=== PATIENT | female | born 1970 | race African-American/Black ===

== ENCOUNTER 2018-01-12 08:55 | Emergency (ER) | payer MEDICAID ==
[~2018-01-12] VITALS: Ht 162.6 cm; Wt 60.0 kg
[2018-01-12 09:04] VITALS: BP 148/84; PULSE 98; RESP 24; TEMP 98.2; O2SAT 99
[2018-01-12 09:45] LABS: HEMATOCRIT 40.3 % (35.0-46.0); HEMOGLOBIN 13.5 GM/DL (11.6-15.3); MEAN CELL VOLUME 84.2 FL (80.0-100.0); MEAN CORPUSCULAR HEMOGLOBIN 28.3 PG (27.0-34.0); MEAN CORPUSCULAR HGB CONC 33.6 % (32.0-36.0); MEAN PLATELET VOLUME 8.2 FL (7.0-11.0); PLATELET COUNT 382 TH/MM3 (150-450); RED BLOOD COUNT 4.78 MIL/MM3 (4.00-5.30); RED CELL DISTRIBUTION WIDTH 20.3 % (11.6-17.2); WHITE BLOOD COUNT 9.3 TH/MM3 (4.0-11.0)
--- NOTE | 2018-01-12 09:50 | RADRPT ---
EXAM DATE/TIME: 01/12/2018 09:27 [facility] COMPARISON: No previous studies available for comparison. INDICATIONS : Chest pain and shortness of breath. MEDICAL HISTORY : Carcinoma, breast. SURGICAL HISTORY : Mastectomy, right. ENCOUNTER: Initial ACUITY: 2 days PAIN SCORE: 8/10 LOCATION: Left upper chest FINDINGS: PA and lateral views of the chest demonstrate the lungs to be symmetrically aerated without evidence of mass, infiltrate or effusion. The cardiomediastinal contours are unremarkable. Osseous structure s are intact. CONCLUSION: No acute disease. Marcus Ellsworth MD on January 12, 2018 at 9:47 Board Certified Radiologist. This report was verified electronically.
[2018-01-12 09:59] LABS: BICARBONATE 25.4 MEQ/L (21.0-32.0); CALCIUM 9.6 MG/DL (8.5-10.1); CHLORIDE 105 MEQ/L (98-107); CREATININE 0.88 MG/DL (0.50-1.00); GLOMERULAR FILTRATION RATE 83 ML/MIN (>89); GLUCOSE,RANDOM 116 MG/DL (74-106); SODIUM (NA) 139 MEQ/L (136-145)
[2018-01-12 10:02] LABS: BLOOD UREA NITROGEN 12 MG/DL (7-18); TROPONIN I LESS THAN 0.02 NG/ML (0.02-0.05)
[2018-01-12 10:29] LABS: BANDS 1 % (0-6); BASOPHILS 1 % (0-2); LYMPHOCYTES 20 % (9-44); MONOCYTES 7 % (0-8); NEUTROPHIL # MANUAL DIFF 6.4 TH/MM3 (1.8-7.7); POLYS (SEG NEUTROPHILS) 68 % (16-70)
[2018-01-12 10:31] LABS: TARGET CELLS 1+ (NORMAL)
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
[2018-01-12] MEDS ORDERED: MORPHINE SULFATE 2 MG/ML INJ IV PUSH ONE (10:45)
[2018-01-12] MEDS ORDERED: IOHEXOL 350 MG/ML 10 ML VIAL (for RAD DIAG) IVCONTRAST ONE (11:16)
--- NOTE | 2018-01-12 11:34 | RADRPT ---
EXAM DATE/TIME: 01/12/2018 11:15 [facility] COMPARISON: CT PULMONARY ANGIOGRAM, September 15, 2013, 4:13. INDICATIONS : Shortness of breath, evaluate for embolism IV CONTRAST: 71 cc Omnipaque 350 (iohexol) IV RADIATION DOSE: 8.87 CTDIvol (mGy) MEDICAL HISTORY : Metastatic, breast. SURGICAL HISTORY : Mastectomy, right. Exploritory Abdominal surgery ENCOUNTER: Initial ACUITY: 1 day PAIN SCALE: 4/10 LOCATION: Bilateral chest TECHNIQUE: Volumetric scanning of the chest was performed using a pulmonary embolism protocol MIP images were re constructed. Using automated exposure control and adjustment of the mA and/or kV according to patien t size, radiation dose was kept as low as reasonably achievable to obtain optimal diagnostic quality images. DICOM format image data is available electronically for review and comparison. Follow-up recommendations for detected pulmonary nodules are based at a minimum on nodule size and pa tient risk factors according to Fleischner Society Guidelines. FINDINGS: PULMONARY ARTERIES: No filling defects are seen in the pulmonary arteries through the segmental level. LUNGS: There is no consolidation or pneumothorax . No concerning pulmonary nodule is visualized. Mild scar ring in the left medial lung base. PLEURAE: There is no pleural thickening or pleural effusion. MEDIASTINUM: There is good visualization of the great vessels of the middle mediastinum. No evidence of mediastin al or hilar adenopathy/mass. Right mastectomy. CONCLUSION: The study is negative for pulmonary embolism. Michael Seaman MD on January 12, 2018 at 11:31 Board Certified Radiologist. This report was verified electronically.
[2018-01-12 11:37] LABS: BACTERIA, URINE RARE /hpf; BILIRUBIN, URINE NEG (NEG); BLOOD, URINE TRACE (NEG); GLUCOSE,URINE NEG (NEG); KETONE, URINE NEG (NEG); MUCUS URINE FEW /lpf (OCC); NITRITE,URINE NEG (NEG); PH, URINE 5.5 (5.0-8.5); SQUAMOUS EPITHELIAL CELL URINE 3 /hpf (0-5); URINE COLOR YELLOW (YELLW/STRAW); URINE LEUKOCYTE ESTERASE LARGE (NEG)
[2018-01-12 12:26] VITALS: BP 129/80
--- NOTE | 2018-01-12 15:06 | EKG ---
Date Performed: 01/12/2018 Time Performed: 09:16:34 PTAGE: 47 years EKG: Sinus rhythm NONSPECIFIC T-WAVE ABNORMALITY BORDERLINE ECG PREVIOUS TRACING : 03/25/2015 11.53 DOCTOR: Cameron Mensah Interpretating Date/Time 01/12/2018 15:04:18
== END 2018-01-12 12:26 | disposition home or self-care (01) ==
LOC: NEPD 08:55
DX: N63.0 Unspecified lump in unspecified breast (principal); R07.89 Other chest pain; M54.9 Dorsalgia, unspecified; Z85.3 Personal history of malignant neoplasm of breast; R06.02 Shortness of breath
CPT/HCPCS: 71046; 71275; 80048; 80307; 81001; 82550; 82552; 84484; 84703; 85007; 85027; 87086; 93005; 96374; 99285; J2270; Q9967

== ENCOUNTER 2018-01-16 15:32 | Emergency (ER) | payer MEDICAID ==
[~2018-01-16] VITALS: Ht 167.6 cm; Wt 65.0 kg
[2018-01-16 15:41] VITALS: BP 132/71; PULSE 88; RESP 22; TEMP 97.9; O2SAT 97
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
[2018-01-16] MEDS ORDERED: KETOROLAC TROMETHAMINE 60 MG/2 ML (IM) VIAL IM ONE (16:15)
[2018-01-16] MEDS ORDERED: ORPHENADRINE INJ 60 MG/2 ML AMP IM ONE (16:15)
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
[2018-01-16] MEDS ORDERED: IBUP1TAB7 PO (18:49)
[2018-01-16] MEDS ORDERED: ROBA500T PO (18:49)
[2018-01-16 19:07] VITALS: PULSE 76; RESP 18; O2SAT 96
== END 2018-01-16 19:15 | disposition home or self-care (01) ==
LOC: NEPD 15:32
DX: M54.5 Low back pain (principal); R10.9 Unspecified abdominal pain; Z85.3 Personal history of malignant neoplasm of breast
CPT/HCPCS: 74176; 84703; 96372; 99283; J1885; J2360

== ENCOUNTER 2018-01-25 13:03 | Inpatient (IN) | payer MEDICAID ==
[~2018-01-25] VITALS: Ht 167.6 cm; Wt 79.5 kg
[~2018-01-25 13:03] MED LIST: IBUP1TAB7 PO; ROBA500T PO
[2018-01-25 13:19] VITALS: BP 113/76; PULSE 127; RESP 12; TEMP 97.4; O2SAT 99
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
[2018-01-25 15:33] VITALS: BP 137/83; PULSE 127; RESP 19; O2SAT 97
[2018-01-25] MEDS ORDERED: SODIUM CHLOR 0.9% 1000 ML INJ 1,000 ML IV ONE ×3 (15:45→17:30)
--- NOTE | 2018-01-25 16:16 | RADRPT ---
EXAM DATE/TIME: 01/25/2018 15:48 [facility] COMPARISON: CHEST SINGLE AP, October 30, 2013, 6:10. INDICATIONS : Leg pain, chest pain. MEDICAL HISTORY : Carcinoma, breast. SURGICAL HISTORY : Mastectomy right breast ENCOUNTER: Initial ACUITY: 1 day PAIN SCORE: 8/10 LOCATION: Bilateral chest FINDINGS: A single view of the chest demonstrates the lungs to be symmetrically aerated without evidence of mas s, infiltrate or effusion. Mild scarring in the right costophrenic angle. The cardiomediastinal cont ours are unremarkable. Osseous structures are intact. CONCLUSION: No acute disease. No significant change has occurred. Vito Flowers MD on January 25, 2018 at 16:14 Board Certified Radiologist. This report was verified electronically.
[2018-01-25 16:28] LABS: AUTOMATED NEUTROPHIL # 24.2 TH/MM3 (1.8-7.7); BASOPHIL % 0.1 % (0.0-2.0); EOSINOPHIL % 0.1 % (0.0-4.0); HEMATOCRIT 40.1 % (35.0-46.0); HEMOGLOBIN 13.3 GM/DL (11.6-15.3); LYMPH % 6.6 % (9.0-44.0); LYMPHOCYTE # 1.8 TH/MM3 (1.0-4.8); MEAN CELL VOLUME 82.1 FL (80.0-100.0); MEAN CORPUSCULAR HEMOGLOBIN 27.3 PG (27.0-34.0); MEAN CORPUSCULAR HGB CONC 33.2 % (32.0-36.0); MEAN PLATELET VOLUME 7.8 FL (7.0-11.0); MONO % 6.2 % (0.0-8.0); MONOCYTE # 1.7 TH/MM3 (0-0.9); PLATELET COUNT 891 TH/MM3 (150-450); RED BLOOD COUNT 4.88 MIL/MM3 (4.00-5.30); RED CELL DISTRIBUTION WIDTH 20.3 % (11.6-17.2); WHITE BLOOD COUNT 27.8 TH/MM3 (4.0-11.0)
[2018-01-25 16:34] LABS: BACTERIA, URINE RARE /hpf; BILIRUBIN, URINE NEG (NEG); BLOOD, URINE SMALL (NEG); GLUCOSE,URINE NEG (NEG); KETONE, URINE NEG (NEG); LACTIC ACID SEPSIS PROTOCOL 3.3 mmol/L (0.4-2.0); NITRITE,URINE NEG (NEG); SQUAMOUS EPITHELIAL CELL URINE 1 /hpf (0-5); URINE COLOR YELLOW (YELLW/STRAW); URINE LEUKOCYTE ESTERASE TRACE (NEG)
[2018-01-25 16:39] VITALS: O2SAT 97
[2018-01-25 16:52] LABS: ALKALINE PHOSPHATASE 126 U/L (45-117); TOTAL BILIRUBIN ADULT 0.7 MG/DL (0.2-1.0); TOTAL PROTEIN 9.3 GM/DL (6.4-8.2)
[2018-01-25] MEDS ORDERED: PIPERACIL-TAZO 4.5 GM PREMIX 100 ML IV ONE (17:00)
[2018-01-25] MEDS ORDERED: VANCOMYCIN INJ 1,000 MG in SODIUM CHLOR 0.9% 250 ML INJ 250 ML IV ONE (17:00)
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
[2018-01-25 19:08] LABS: ALBUMIN 1.7 GM/DL (3.4-5.0); ALT (GPT) 31 U/L (10-53); AST (GOT) 69 U/L (15-37); BICARBONATE 29.5 MEQ/L (21.0-32.0); BLOOD UREA NITROGEN 7 MG/DL (7-18); CALCIUM 8.3 MG/DL (8.5-10.1); CHLORIDE 102 MEQ/L (98-107); CREATININE 0.82 MG/DL (0.50-1.00); GLOMERULAR FILTRATION RATE 90 ML/MIN (>89); GLUCOSE,RANDOM 119 MG/DL (74-106); SODIUM (NA) 142 MEQ/L (136-145)
[2018-01-25] MEDS ORDERED: MORPHINE SULFATE 2 MG/ML INJ IV PUSH ONE (19:45)
[2018-01-25 20:04] VITALS: BP 123/79; PULSE 104; RESP 16; O2SAT 100
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
[2018-01-25] MEDS: POTASSIUM CHLOR 20 MEQ PREMIX 100 ML IV SCH ×2 (20:45→23:20)
[2018-01-25] MEDS ORDERED: ACETAMINOPHEN 325 MG TAB PO PRN (22:15)
[2018-01-25] MEDS ORDERED: SODIUM CHLORIDE 0.9% FLUSH 10 ML FLUSH IV FLUSH PRN (22:15)
[2018-01-25] MEDS ORDERED: Vancomycin Consult Pharmacy 1 EA OTHER SCH (22:15)
[2018-01-25] MEDS ORDERED: ONDANSETRON HCL 4 MG/2 ML VIAL IVP PRN (22:15)
[2018-01-25] MEDS ORDERED: NALOXONE HCL 0.4 MG/ML AMP IV PUSH PRN (22:15)
[2018-01-25] MEDS ORDERED: VANCOMYCIN 500 MG/NS 100 ML IV SCH ×2 (23:00)
[2018-01-26] VITALS (7 sets, daily range): BP systolic 115–139; BP diastolic 59–91; PULSE 89–107; RESP 14–18; TEMP 97.4–100; O2SAT 95–99
[2018-01-26] MEDS: PIPERACIL-TAZO 3.375 GM PREMIX 50 ML IV SCH ×5 (00:10→23:49)
[2018-01-26] MEDS: SODIUM CHLOR 0.9% 1000 ML INJ 1,000 ML IV SCH ×3 (00:10→13:14)
[2018-01-26 00:16] LABS: LACTIC ACID SEPSIS PROTOCOL 2.9 mmol/L (0.4-2.0)
[2018-01-26] MEDS ORDERED: MORPHINE SULFATE 4 MG/ML INJ IV PUSH ONE (01:00)
[2018-01-26] MEDS ORDERED: POTASSIUM CHLORIDE 20 MEQ CONTROLLED RELEASE TAB PO ONE (01:00)
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
[2018-01-26] MEDS ORDERED: POTASSIUM CHLOR 10 MEQ PREMIX 100 ML IV SCH (02:00)
[2018-01-26 04:53] LABS: AUTOMATED NEUTROPHIL # 22.2 TH/MM3 (1.8-7.7); BASOPHIL # 0.1 TH/MM3 (0-0.2); BASOPHIL % 0.3 % (0.0-2.0); EOSINOPHIL % 0.1 % (0.0-4.0); HEMATOCRIT 32.8 % (35.0-46.0); HEMOGLOBIN 11.3 GM/DL (11.6-15.3); LYMPH % 6.7 % (9.0-44.0); LYMPHOCYTE # 1.7 TH/MM3 (1.0-4.8); MEAN CELL VOLUME 80.8 FL (80.0-100.0); MEAN CORPUSCULAR HEMOGLOBIN 27.8 PG (27.0-34.0); MEAN CORPUSCULAR HGB CONC 34.4 % (32.0-36.0); MEAN PLATELET VOLUME 7.5 FL (7.0-11.0); MONO % 6.2 % (0.0-8.0); MONOCYTE # 1.6 TH/MM3 (0-0.9); NEUT % 86.7 % (16.0-70.0); PLATELET COUNT 781 TH/MM3 (150-450); RED BLOOD COUNT 4.06 MIL/MM3 (4.00-5.30); RED CELL DISTRIBUTION WIDTH 20.2 % (11.6-17.2); WHITE BLOOD COUNT 25.6 TH/MM3 (4.0-11.0)
[2018-01-26 05:27] LABS: BICARBONATE 26.5 MEQ/L (21.0-32.0); CREATININE 0.7 MG/DL (0.50-1.00)
--- NOTE | 2018-01-26 09:10 | RADRPT ---
EXAM DATE/TIME: 01/25/2018 16:59 [facility] COMPARISON: No previous studies available for comparison. INDICATIONS : Fell last week pain. MEDICAL HISTORY : Carcinoma, breast. SURGICAL HISTORY : None. ENCOUNTER: Initial ACUITY: 1 week PAIN SCORE: 6/10 LOCATION: Right femur FINDINGS: One view examination of the right femur demonstrates no evidence of fracture or dislocation. Bony mi neralization is normal. The soft tissue structures are intact. CONCLUSION: Negative for fracture or dislocation. Follow up in 7-10 days is suggested if symptoms persist. Jose Guadalupe Bruce MD FACR on January 26, 2018 at 9:08 Board Certified Radiologist. This report was verified electronically.
[2018-01-26] MEDS: MORPHINE SULFATE 2 MG/ML INJ IV PUSH PRN ×5 (09:53→23:47)
[2018-01-26] MEDS: SODIUM CHLORIDE 0.9% FLUSH 10 ML FLUSH IV FLUSH SCH ×2 (09:53→20:35)
[2018-01-26] MEDS: VANCOMYCIN 1,000 MG/NS 250 ML IV SCH ×2 (17:17)
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
[2018-01-27] VITALS: BP 128/72; PULSE 95; RESP 16; TEMP 97.3; O2SAT 95
[2018-01-27] MEDS: MORPHINE SULFATE 2 MG/ML INJ IV PUSH PRN ×7 (02:50→21:09)
[2018-01-27 04:00] VITALS: BP 122/72; PULSE 101; PULSE 98; RESP 18; TEMP 97.9; O2SAT 97
[2018-01-27] MEDS: PIPERACIL-TAZO 3.375 GM PREMIX 50 ML IV SCH ×3 (05:33→17:47)
[2018-01-27] MEDS: VANCOMYCIN 1,000 MG/NS 250 ML IV SCH ×4 (05:34→15:55)
[2018-01-27] MEDS: SODIUM CHLOR 0.9% 1000 ML INJ 1,000 ML IV SCH ×2 (05:34→14:44)
[2018-01-27 07:27] LABS: CREATININE 0.73 MG/DL (0.50-1.00)
[2018-01-27 08:17] VITALS: BP 119/68; PULSE 101; RESP 16; TEMP 99; O2SAT 97
[2018-01-27] MEDS: SODIUM CHLORIDE 0.9% FLUSH 10 ML FLUSH IV FLUSH SCH ×2 (09:00→21:17)
[2018-01-27 12:21] VITALS: PULSE 101; RESP 18; TEMP 97.9; O2SAT 99
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
--- NOTE | 2018-01-27 16:16 | HHI.PR ---
Subjective Remarks Patient c/o of severe pain to lumbar spine radiates down to her thigh. Patient also states that her thigh swollen and the right lower extremity is weak. The patient complains of fevers and chills. Patient states she has some urinary incontinence, however it is mainly when she coughs. Objective Vitals Vital Signs Date Time Temp Pulse Resp B/P (MAP) Pulse Ox O2 Delivery O2 Flow Rate FiO2 01/27/18 12:21 97.9 101 18 99 01/27/18 08:17 99.0 101 16 119/68 (85) 97 01/27/18 04:00 97.9 98 18 122/72 (89) 97 01/27/18 04:00 101 01/27/18 00:00 97.3 95 16 128/72 (90) 95 01/26/18 20:00 97.5 103 16 131/71 (91) 95 01/26/18 20:00 97 I/O 01/26/18 01/26/18 01/26/18 01/27/18 01/27/18 01/27/18 06:59 14:59 22:59 06:59 14:59 22:59 Intake Total 250 ml 960 ml Balance 250 ml 960 ml Intake Oral 960 ml IV Total 250 ml # Voids 1 7 # Bowel Movements 1 Result Diagram: 01/26/18 0434 01/27/18 0622 Imaging Last Impressions Thoracic Spine MRI 01/27/18 0000 Signed Impressions: Service Date/Time: January 10:54 - CONCLUSION: 1. Limited exam due to motion artifact just about every pulse sequence. 2. No obvious cord compromise or cord edema. 3. Probable hemangiomas in the T11 and T12 vertebral bodies. Simone Jiang MD Lumbar Spine MRI 01/27/18 0000 Signed Impressions: Service Date/Time: January 10:54 - CONCLUSION: 1. Examination is somewhat limited due to motion artifact on multiple pulse sequences. 2. However, there are multiple areas of abnormal signal intensity in the lower thoracic and multiple lumbar vertebrae. Findings are concerning for metastatic disease. May consider bone scan for further evaluation of the multiple vertebral body lesions. 3. Degenerative disc disease isolated to the lumbosacral junction with left foraminal narrowing which may compromise the left L5 nerve root. Spinal canal and neural foramina are adequate at all remaining lumbar levels. 4. Possible cystic lesions in the upper pelvis bilaterally. These are only partially evaluated on the last few images of the axial sequence. CT scan of the abdomen and pelvis could be performed with IV and oral contrast for further characterization. Smione Jiang MD Chest X-Ray 01/25/18 1539 Signed Impressions: Service Date/Time: Thursday, January 25, 2018 15:48 - CONCLUSION: No acute disease. No significant change has occurred. Vito Flowers MD Hip and Pelvis X-Ray 01/25/18 0000 Signed Impressions: Service Date/Time: Thursday, January 25, 2018 16:58 - CONCLUSION: Normal examination for a patient of this age. Vito Flowers MD Femur X-Ray 01/25/18 0000 Signed Impressions: Service Date/Time: Thursday, January 25, 2018 16:59 - CONCLUSION: Negative for fracture or dislocation. Follow up in 7-10 days is suggested if symptoms persist. Jose Guadalupe Bruce MD FACR Objective Remarks Patient is awake alert oriented 3, in moderate distress due to pain. Lungs are clear to auscultation bilaterally. S1-S2 are present, no murmur rubs or gallops appreciated. Abdomen is soft, nontender, nondistended. There is swelling and tenderness of the right thigh with decreased strength. Muscle strength in the right lower extremity is 2/5. All other extremities are 5/5. Medications and IVs Current Medications Medications (Trade) Dose Ordered Sig/Dave Route Start Time Stop Time Status Last Admin Sodium Chloride 1,000 ml @ 100 mls/hr Q10H IV 01/25/18 22:07 01/27/18 14:44 (NS Flush) 2 ml UNSCH PRN IV FLUSH 01/25/18 22:15 (NS Flush) 2 ml BID IV FLUSH 01/26/18 09:00 01/26/18 09:53 (Tylenol) 650 mg Q4H PRN PO 01/25/18 22:15 (Zofran Inj) 4 mg Q6H PRN IVP 01/25/18 22:15 (Narcan Inj) 0.4 mg UNSCH PRN IV PUSH 01/25/18 22:15 Pharmacy Profile Note 0 ml @ 0 mls/hr UNSCH OTHER 01/25/18 22:15 Piperacillin Sod/ Tazobactam Sod 50 ml @ 100 mls/hr Q6H IV 01/26/18 00:00 01/27/18 11:48 (Morphine Inj) 2 mg Q3H PRN IV PUSH 01/26/18 01:00 01/27/18 15:53 Vancomycin HCl 1000 mg/Sodium Chloride 250 ml @ 250 mls/hr Q12H IV 01/26/18 17:00 01/27/18 15:55 Miscellaneous Information SPECIFIC LAB TO BE DRAWN:VANCOMY... ONCE ONCE .XX 01/27/18 16:45 01/27/18 16:46 01/27/18 16:08 A/P Problem List: (1) Sepsis ICD Code: A41.9 - Sepsis, unspecified organism Status: Acute Plan: Present on admission. Patient with leukocytosis, tachycardia and elevated lactic acid. Concern for discitis. Chest x-ray negative, UA negative. MRI of the lumbar spine as above concerning for metastatic disease. We will order bone scan Continue IV vancomycin IV Zosyn. ID consult Blood cultures negative to date. (2) Acute right-sided low back pain ICD Code: M54.5 - Low back pain Status: Acute Plan: Suspect secondary to radiculopathy. Lumbar spine MRI shows degenerative disc disease is related to the lumbosacral junction with left foraminal narrowing which may compromise the left L5 nerve root. Also multiple areas of abnormal signal intensity in the lower thoracic and multiple lumbar vertebrae. Concerning for metastatic disease. Order bone scan. Consult neurosurgery for further recommendations. MRI also shows possible cystic lesions in the upper pelvis bilaterally-check CT scan of the abdomen and pelvis with IV contrast. Patient still with severe pain. Will change pain medication routine. We will start the patient on morphine sulfate 2 mg IV every 3 hours as needed for pain 1 through 4, 4 mg IV every 3 hours as needed for pain 5-10 and Dilaudid IV for breakthrough pain. (3) Hypokalemia ICD Code: E87.6 - Hypokalemia Plan: Likely due to poor oral intake. Replace and continue to monitor BMP. (4) Polysubstance abuse ICD Code: F19.10 - Other psychoactive substance abuse, uncomplicated Status: Acute Plan: Urine drug screen positive for benzodiazepines, cocaine and cannabinoids. Patient denies IV drug abuse. Cessation counseling provided. (5) Right thigh pain ICD Code: M79.651 - Pain in right thigh Status: Acute Plan: Concerning for DVT. We will check venous Doppler and start the patient on IV heparin drip in the meantime. The patient's pretest probability for DVT is elevated. If venous Doppler negative for DVT then will DC heparin. (6) H/O malignant neoplasm of breast ICD Code: Z85.3 - Personal history of malignant neoplasm of breast Plan: As per medical records, Dr. Barros performed a breast exam which demonstrated a palpable solid mass. Pending results on bone scan and CT chest abdomen and pelvis, consider oncology consultation. Assessment and Plan DVT reflexes: SCDs, will start on heparin drip. Discharge Planning Continue to monitor the medical floor. Pending CT abdomen and pelvis, CT chest , bone scan, neurosurgery consultation, ID consultation. Problem Qualifiers (1) Sepsis: Qualified Codes: A41.9 - Sepsis, unspecified organism Ramesh Phillips MD Jan 27, 2018 16:16
[2018-01-27] MEDS ORDERED: PHARMACY ORDERED LAB ONE (16:45)
[2018-01-27 17:06] VITALS: BP 120/89; PULSE 109; RESP 18; TEMP 98.2; O2SAT 98
[2018-01-27 18:58] LABS: HEMATOCRIT 30.8 % (35.0-46.0); HEMOGLOBIN 10.2 GM/DL (11.6-15.3); MEAN CELL VOLUME 82.3 FL (80.0-100.0); MEAN CORPUSCULAR HEMOGLOBIN 27.2 PG (27.0-34.0); MEAN CORPUSCULAR HGB CONC 33.1 % (32.0-36.0); PLATELET COUNT 774 TH/MM3 (150-450); RED BLOOD COUNT 3.75 MIL/MM3 (4.00-5.30); RED CELL DISTRIBUTION WIDTH 20.5 % (11.6-17.2); WHITE BLOOD COUNT 24.7 TH/MM3 (4.0-11.0)
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
[2018-01-27 18:59] LABS: INTERNATIONAL NORMALIZED RATIO 1.2 RATIO
[2018-01-27 19:08] LABS: ALBUMIN 1.6 GM/DL (3.4-5.0); ALKALINE PHOSPHATASE 142 U/L (45-117); ALT (GPT) 73 U/L (10-53); AST (GOT) 157 U/L (15-37); BICARBONATE 28.8 MEQ/L (21.0-32.0); BLOOD UREA NITROGEN 5 MG/DL (7-18); CALCIUM 8.5 MG/DL (8.5-10.1); CHLORIDE 102 MEQ/L (98-107); GLOMERULAR FILTRATION RATE 108 ML/MIN (>89); GLUCOSE,RANDOM 85 MG/DL (74-106); MAGNESIUM 1.5 MG/DL (1.5-2.5); PHOSPHORUS 3.3 MG/DL (2.5-4.9); SODIUM (NA) 139 MEQ/L (136-145); TOTAL BILIRUBIN ADULT 0.3 MG/DL (0.2-1.0); TOTAL PROTEIN 6.5 GM/DL (6.4-8.2)
[2018-01-27 20:36] VITALS: BP 123/75; PULSE 103; RESP 17; TEMP 98.6; O2SAT 100
[2018-01-28] VITALS (7 sets, daily range): BP systolic 103–139; BP diastolic 69–87; PULSE 81–106; RESP 17–22; TEMP 95.2–98.6; O2SAT 99–100
[2018-01-28] MEDS: SODIUM CHLOR 0.9% 1000 ML INJ 1,000 ML IV SCH ×3 (00:07→20:33)
[2018-01-28] MEDS: MORPHINE SULFATE 2 MG/ML INJ IV PUSH PRN ×4 (00:08→11:00)
[2018-01-28] MEDS: PIPERACIL-TAZO 3.375 GM PREMIX 50 ML IV SCH ×4 (00:11→18:38)
[2018-01-28] MEDS: VANCOMYCIN INJ 1,200 MG in SODIUM CHLOR 0.9% 250 ML INJ 250 ML IV SCH ×2 (04:54→17:17)
[2018-01-28 07:54] LABS: AUTOMATED NEUTROPHIL # 19.9 TH/MM3 (1.8-7.7); BASOPHIL # 0.1 TH/MM3 (0-0.2); BASOPHIL % 0.4 % (0.0-2.0); EOSINOPHIL # 0.1 TH/MM3 (0-0.4); EOSINOPHIL % 0.4 % (0.0-4.0); HEMATOCRIT 32.1 % (35.0-46.0); HEMOGLOBIN 10.9 GM/DL (11.6-15.3); LYMPH % 5.5 % (9.0-44.0); LYMPHOCYTE # 1.2 TH/MM3 (1.0-4.8); MEAN CELL VOLUME 82.3 FL (80.0-100.0); MEAN CORPUSCULAR HEMOGLOBIN 28.1 PG (27.0-34.0); MEAN CORPUSCULAR HGB CONC 34.1 % (32.0-36.0); MEAN PLATELET VOLUME 7.5 FL (7.0-11.0); MONO % 4.4 % (0.0-8.0); NEUT % 89.3 % (16.0-70.0); PLATELET COUNT 848 TH/MM3 (150-450); RED CELL DISTRIBUTION WIDTH 19.7 % (11.6-17.2); WHITE BLOOD COUNT 22.3 TH/MM3 (4.0-11.0)
[2018-01-28 08:05] LABS: ALBUMIN 1.5 GM/DL (3.4-5.0); ALKALINE PHOSPHATASE 106 U/L (45-117); ALT (GPT) 57 U/L (10-53); AST (GOT) 87 U/L (15-37); BICARBONATE 31.8 MEQ/L (21.0-32.0); BLOOD UREA NITROGEN 3 MG/DL (7-18); CHLORIDE 101 MEQ/L (98-107); CREATININE 0.61 MG/DL (0.50-1.00); GLOMERULAR FILTRATION RATE 127 ML/MIN (>89); GLUCOSE,RANDOM 83 MG/DL (74-106); MAGNESIUM 1.7 MG/DL (1.5-2.5); PHOSPHORUS 2.9 MG/DL (2.5-4.9); SODIUM (NA) 140 MEQ/L (136-145); TOTAL BILIRUBIN ADULT 0.3 MG/DL (0.2-1.0); TOTAL PROTEIN 6.4 GM/DL (6.4-8.2)
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
[2018-01-28] MEDS ORDERED: DIATRIZOATE MEGLUM/DIATRIZOATE SOD 9 ML CUP PO ONE (08:45)
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
[2018-01-28] MEDS ORDERED: MAGNESIUM HYDROXIDE SUSP 30 ML CUP PO PRN (11:15)
[2018-01-28] MEDS ORDERED: SODIUM CHLORIDE 0.9% FLUSH 10 ML FLUSH IV FLUSH PRN (11:15)
[2018-01-28] MEDS ORDERED: oxyCODONE/ACETAMINOPHEN 5 MG/325 MG TAB PO PRN (11:15)
[2018-01-28] MEDS ORDERED: ONDANSETRON HCL 4 MG/2 ML VIAL IVP PRN (11:15)
[2018-01-28] MEDS: DOCUSATE SODIUM 50 MG/SENNA 8.6 MG TAB PO SCH ×2 (11:15→20:33)
[2018-01-28] MEDS ORDERED: LORazepam 2 MG/ML VIAL IV PUSH ONE (11:15)
[2018-01-28] MEDS ORDERED: LACTULOSE SYRUP 20 GM/30 ML CUP PO PRN (11:15)
[2018-01-28] MEDS ORDERED: MORPHINE SULFATE 4 MG/ML INJ IV PUSH PRN (11:15)
[2018-01-28] MEDS ORDERED: METOCLOPRAMIDE HCL 10 MG/2 ML VIAL IV PUSH PRN (11:15)
[2018-01-28] MEDS ORDERED: POTASSIUM CHLORIDE 20 MEQ CONTROLLED RELEASE TAB PO ONE (11:15)
[2018-01-28] MEDS ORDERED: NALOXONE HCL 0.4 MG/ML AMP IV PUSH PRN (11:15)
[2018-01-28] MEDS: oxyCODONE/ACETAMINOPHEN 10 MG/325 MG TAB PO PRN (13:44)
--- NOTE | 2018-01-28 14:54 | RADRPT ---
EXAM DATE/TIME: 01/28/2018 12:30 [facility] COMPARISON: CT PULMONARY ANGIOGRAM, January 12, 2018, 11:15. MRI THORACIC SPINE W/O CONTRAST, January 27, 2018, 1 0:54. PRIOR BONE SCANS: No correlative bone scan available for comparison. INDICATIONS : Right breast cancer. DOSE: 31.2 mCi Tc99m MDP IV MEDICAL HISTORY : Carcinoma, breast. SURGICAL HISTORY : Tubal ligation. Mastectomy, right. ENCOUNTER: Initial ACUITY: 1 month PAIN SCALE: 2/10 LOCATION: Right Breast. TECHNIQUE: Three hours post intravenous administration of radiotracer, whole body bone scan imaging was performe d. FINDINGS: We were only able to acquire limited AP and PA images. The patient declined further imaging. There is motion artifact on the images obtained. I do not see definite evidence of metastatic disease to the spine or ribs. CONCLUSION: 1. Very Limited exam as above. No definite metastatic disease identified in the visualized structures . John Bruce MD on January 28, 2018 at 14:47 Board Certified Radiologist. This report was verified electronically.
[2018-01-28] MEDS ORDERED: PHARMACY ORDERED LAB ONE (15:45)
[2018-01-28] MEDS: MAGNESIUM OXIDE 400 MG TAB PO SCH ×2 (16:51→20:31)
[2018-01-28] MEDS: MORPHINE SULFATE 4 MG/ML INJ IV PUSH PRN (17:16)
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
[2018-01-28] MEDS: SODIUM CHLORIDE 0.9% FLUSH 10 ML FLUSH IV FLUSH SCH ×2 (20:30→20:33)
[2018-01-28] MEDS: SENNOSIDES 8.6 MG TAB PO SCH ×2 (20:31→20:33)
[2018-01-28] MEDS: LORazepam 2 MG TAB PO PRN (20:31)
[2018-01-28] MEDS: oxyCODONE HCL 20 MG CONTROLLED RELEASE TAB PO SCH (20:32)
[2018-01-28] MEDS ORDERED: oxyCODONE HCL 20 MG CONTROLLED RELEASE TAB PO SCH (21:00)
[2018-01-28] MEDS ORDERED: SODIUM CHLORIDE 0.9% FLUSH 10 ML FLUSH IV FLUSH SCH (21:00)
[2018-01-28] MEDS ORDERED: IOHEXOL 350 MG/ML 10 ML VIAL (for RAD DIAG) IVCONTRAST ONE (21:39)
--- NOTE | 2018-01-28 22:17 | RADRPT ---
EXAM DATE/TIME: 01/28/2018 21:35 [facility] COMPARISON: CT ABDOMEN & PELVIS W/O CONTRAST, January 16, 2018, 17:12. HIP RIGHT (AP&LAT 2/3VWS) W AP PELVIS, M 2017, 16:58. CT ABDOMEN & PELVIS W CONTRAST, May 25, 2012, 9:40. INDICATIONS : Breast cancer. Evaluate neoplasms. IV CONTRAST: 97 cc Omnipaque 350 (iohexol) IV ; Cumulative dose for multiple exams. ORAL CONTRAST: Prescribed oral contrast ingested. RADIATION DOSE: 5.57 CTDIvol (mGy) ; Combined studies - Thorax/Abdomen/Pelvis MEDICAL HISTORY : Carcinoma, breast. Metastatic disease. SURGICAL HISTORY : Tubal ligation. Mastectomy. ENCOUNTER: Initial ACUITY: 1 day PAIN SCALE: 0/10 LOCATION: abdomen TECHNIQUE: Volumetric scanning of the abdomen and pelvis was performed. Using automated exposure control and ad justment of the mA and/or kV according to patient size, radiation dose was kept as low as reasonably achievable to obtain optimal diagnostic quality images. DICOM format image data is available electro nically for review and comparison. FINDINGS: LOWER LUNGS: Small left pleural effusion. The visualized lower lungs are clear. LIVER: There is a solitary round low density lesion in the lateral segment of the left lobe of the liver adj acent to falciform ligament measuring 2.0 cm. This has a partial target type of appearance with no c alcification. No calcified gallstones. No biliary ductal dilatation. SPLEEN: Normal size without lesion. PANCREAS: Within normal limits. KIDNEYS: Normal in size and shape. There is no mass, stone or hydronephrosis. ADRENAL GLANDS: Within normal limits. VASCULAR: There is no aortic aneurysm. BOWEL/MESENTERY: The stomach, small bowel, and colon demonstrate no acute abnormality. There is no free intraperitone al air or fluid. ABDOMINAL WALL: Within normal limits. RETROPERITONEUM: There is a large mass which extends from the proximal right thigh into the iliac fossa with a mixed c ystic and solid type of appearance. The iliac fossa component measures 10.2 x 6.1 cm. The superior/ inferior extent of both the iliac fossa and right component measures in excess of 15 cm and there is enlargement and infiltration involving the medial muscle group and asymmetric enlargement of the glut eal muscles suggesting involvement with anterior and posterior compartment muscles. This is a new fi nding when compared to prior CT scan on 01/16/18. There are no focal collections of gas in the adjace nt osseous structures are radiographically intact. BLADDER: No wall thickening or mass. REPRODUCTIVE: Within normal limits. INGUINAL: There is no lymphadenopathy or hernia. MUSCULOSKELETAL: Within normal limits for patient age. CONCLUSION: 1. 2 cm round low density lesion in the medial segment left lobe liver is suspicious for a metastatic lesion. 2. Small left pleural effusion. 3. Large mixed fluid and solid soft tissue abnormality involving the proximal thigh and extending int o the iliac fossa measuring in excess of 15 cm in size, having developed since prior CT scan less jason n one month ago. The rapidity of onset suggests an etiology other than neoplasm, such as hematoma, a bscess, or trauma. Michael Seaman MD on January 28, 2018 at 22:06 Board Certified Radiologist. This report was verified electronically.
--- NOTE | 2018-01-28 22:36 | RADRPT ---
EXAM DATE/TIME: 01/28/2018 21:35 [facility] COMPARISON: CT PULMONARY ANGIOGRAM, September 15, 2013, 4:13. CT THORAX W CONTRAST, May 23, 2012, 14:01. INDICATIONS : Breast cancer. Evaluate neoplasms. IV CONTRAST: 97 cc Omnipaque 350 (iohexol) IV ; Cumulative dose for multiple exams. RADIATION DOSE: 5.57 CTDIvol (mGy) ; Combined studies - Thorax/Abdomen/Pelvis MEDICAL HISTORY : Carcinoma, breast. Metastatic disease. SURGICAL HISTORY : Tubal ligation. Mastectomy. ENCOUNTER: Initial ACUITY: 1 day PAIN SCALE: 0/10 LOCATION: chest TECHNIQUE: Volumetric scanning of the chest was performed. Using automated exposure control and adjustment of t he mA and/or kV according to patient size, radiation dose was kept as low as reasonably achievable to obtain optimal diagnostic quality images. DICOM format image data is available electronically for review and comparison. Follow-up recommendations for detected pulmonary nodules are based at a minimum on nodule size and pa tient risk factors according to Fleischner Society Guidelines. FINDINGS: LUNGS: There is several ill-defined areas of increased ground substance involving the left upper and left lo wer lungs. 2 masslike densities in the focal areas of consolidation. The right lung is clear. PLEURA: There is a small left pleural effusion measuring 1.4 cm. Minimal right-sided pleural effusion measur es 6 mm. MEDIASTINUM: No evidence of mediastinal adenopathy. AXILLAE: Right mastectomy. There is several enlarged level II lymph nodes, the largest of which measures 1.9 cm, best seen on axial mediastinal windows #24. SKELETAL: No lytic or sclerotic lesions seen. CONCLUSION: 1. Multiple right axillary masses/nodes measuring up to 1.9 cm. 2. Bilateral pleural effusions, left greater than right. 3. Patchy and faint areas of increased bone substance in the left upper and left lower lobe are of un certain significance no discrete masses or infiltrates seen. Michael Seaman MD on January 28, 2018 at 22:30 Board Certified Radiologist. This report was verified electronically.
--- NOTE | 2018-01-28 22:38 | RADRPT ---
EXAM DATE/TIME: 01/28/2018 21:35 [facility] COMPARISON: No previous studies available for comparison. INDICATIONS : Breast cancer. Evaluate neoplasms. IV CONTRAST: 97 cc Omnipaque 350 (iohexol) IV ; Cumulative dose for multiple exams. RADIATION DOSE: CTDIvol (mGy) ; Reconstructed from previous dataset, no dose MEDICAL HISTORY : Carcinoma, breast. Metastatic disease. SURGICAL HISTORY : Thyroidectomy. Mastectomy. ENCOUNTER: Initial ACUITY: 1 day PAIN SCALE: 0/10 LOCATION: Paraspinal TECHNIQUE: Volumetric scanning of the lumbar spine was performed. Multiplanar reconstructions in the sagittal, coronal and oblique axial planes were performed. Using automated exposure control and adjustment of the mA and/or kV according to patient size, radiation dose was kept as low as reasonably achievable t o obtain optimal diagnostic quality images. DICOM format image data is available electronically for review and comparison. FINDINGS: There is normal alignment of the vertebral bodies of the lumbar spine preservation of vertebral body height. No lytic or sclerotic lesions seen. There is narrowing of the L5-S1 interspace with moderat e anterior paravertebral ossification formation. Posterior elements are grossly normal alignment wit h moderate hypertrophic changes facet joints L4-S1. Mild curvature of the lumbar spine convex toward s the left. L1-L2: The disc, uncovertebral joints, central canal, foramina, and facets are normal. L2-L3: The disc, uncovertebral joints, central canal, foramina, and facets are normal. L3-L4: The disc, uncovertebral joints, central canal, foramina, and facets are normal. L4-L5: The disc, uncovertebral joints, central canal, foramina, and facets are normal. L5-S1: The disc, uncovertebral joints, central canal, foramina, and facets are normal. CONCLUSION: 1. Mild curvature of the lumbar spine convex towards the left with associated posterior element hyper trophic changes. 2. No lytic, sclerotic, or permeative lesions of vertebral bodies. Michael Seaman MD on January 28, 2018 at 22:34 Board Certified Radiologist. This report was verified electronically.
[2018-01-29] VITALS: BP 110/63; PULSE 102; RESP 19; TEMP 98.9; O2SAT 100
[2018-01-29] MEDS: PIPERACIL-TAZO 3.375 GM PREMIX 50 ML IV SCH ×4 (00:27→21:00)
[2018-01-29] MEDS: oxyCODONE/ACETAMINOPHEN 10 MG/325 MG TAB PO PRN ×3 (03:42→22:45)
[2018-01-29 05:40] VITALS: BP 100/55; PULSE 89; RESP 16; TEMP 98.3; O2SAT 94
[2018-01-29] MEDS: VANCOMYCIN INJ 1,400 MG in SODIUM CHLORID 0.9% 500 ML INJ 500 ML IV SCH ×2 (06:07→18:27)
[2018-01-29] MEDS: MORPHINE SULFATE 4 MG/ML INJ IV PUSH PRN ×2 (06:08→15:00)
[2018-01-29] MEDS: SODIUM CHLOR 0.9% 1000 ML INJ 1,000 ML IV SCH ×2 (06:12→16:54)
[2018-01-29 08:01] LABS: AUTOMATED NEUTROPHIL # 18.7 TH/MM3 (1.8-7.7); BASOPHIL % 0.2 % (0.0-2.0); EOSINOPHIL # 0.1 TH/MM3 (0-0.4); EOSINOPHIL % 0.3 % (0.0-4.0); HEMATOCRIT 31.1 % (35.0-46.0); HEMOGLOBIN 10.4 GM/DL (11.6-15.3); LYMPHOCYTE # 1.5 TH/MM3 (1.0-4.8); MEAN CELL VOLUME 81.8 FL (80.0-100.0); MEAN CORPUSCULAR HEMOGLOBIN 27.5 PG (27.0-34.0); MEAN CORPUSCULAR HGB CONC 33.6 % (32.0-36.0); MEAN PLATELET VOLUME 7.4 FL (7.0-11.0); MONO % 5.1 % (0.0-8.0); MONOCYTE # 1.1 TH/MM3 (0-0.9); NEUT % 87.4 % (16.0-70.0); PLATELET COUNT 1007 TH/MM3 (150-450); RED CELL DISTRIBUTION WIDTH 19.9 % (11.6-17.2); WHITE BLOOD COUNT 21.4 TH/MM3 (4.0-11.0)
[2018-01-29 08:41] LABS: ALBUMIN 1.6 GM/DL (3.4-5.0); ALKALINE PHOSPHATASE 94 U/L (45-117); ALT (GPT) 47 U/L (10-53); AST (GOT) 56 U/L (15-37); BICARBONATE 31.8 MEQ/L (21.0-32.0); BLOOD UREA NITROGEN 4 MG/DL (7-18); CALCIUM 8.2 MG/DL (8.5-10.1); CHLORIDE 99 MEQ/L (98-107); FREE T4 1.32 NG/DL (0.76-1.46); GLOMERULAR FILTRATION RATE 108 ML/MIN (>89); GLUCOSE,RANDOM 94 MG/DL (74-106); MAGNESIUM 1.6 MG/DL (1.5-2.5); PHOSPHORUS 3.6 MG/DL (2.5-4.9); SODIUM (NA) 139 MEQ/L (136-145); TOTAL BILIRUBIN ADULT 0.3 MG/DL (0.2-1.0); TOTAL PROTEIN 6.3 GM/DL (6.4-8.2)
[2018-01-29] MEDS: SENNOSIDES 8.6 MG TAB PO SCH ×2 (08:47→22:44)
[2018-01-29] MEDS: oxyCODONE HCL 20 MG CONTROLLED RELEASE TAB PO SCH ×2 (08:48→19:52)
[2018-01-29] MEDS: MAGNESIUM OXIDE 400 MG TAB PO SCH ×2 (08:48→22:44)
[2018-01-29] MEDS: DOCUSATE SODIUM 50 MG/SENNA 8.6 MG TAB PO SCH ×2 (08:49→22:47)
[2018-01-29] MEDS: SODIUM CHLORIDE 0.9% FLUSH 10 ML FLUSH IV FLUSH SCH ×2 (09:00→21:00)
[2018-01-29 09:57] VITALS: BP 117/57; PULSE 95; RESP 20; TEMP 97.3; O2SAT 97
[2018-01-29] MEDS: LORazepam 2 MG TAB PO PRN (10:06)
[2018-01-29] MEDS ORDERED: POTASSIUM CHLORIDE 20 MEQ CONTROLLED RELEASE TAB PO ONE (11:00)
[2018-01-29] MEDS: MAGNESIUM SULFATE 1 GM PREMIX 100 ML IV SCH ×2 (11:38→12:00)
[2018-01-29 11:49] VITALS: BP 109/65; PULSE 107; RESP 20; TEMP 99.1; O2SAT 98
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
[2018-01-29] MEDS ORDERED: PIPERACIL-TAZO 3.375 GM PREMIX 50 ML IV SCH (14:00)
[2018-01-29 14:59] LABS: HEMOGLOBIN A1C 6.5 % (4.3-6.0)
[2018-01-29 16:01] VITALS: BP 122/68; PULSE 100; RESP 20; TEMP 98.9; O2SAT 97
[2018-01-29] MEDS ORDERED: MAGNESIUM SULFATE 1 GM PREMIX 100 ML IV SCH (16:30)
[2018-01-29 20:00] VITALS: BP 112/56; PULSE 108; RESP 18; TEMP 99.1; O2SAT 94
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
[2018-01-30] VITALS: BP 99/60; PULSE 112; RESP 18; TEMP 98.5; O2SAT 94
[2018-01-30] MEDS: SODIUM CHLOR 0.9% 1000 ML INJ 1,000 ML IV SCH ×2 (02:07→10:32)
[2018-01-30] MEDS: PIPERACIL-TAZO 3.375 GM PREMIX 50 ML IV SCH ×4 (03:00→20:30)
[2018-01-30] MEDS: oxyCODONE/ACETAMINOPHEN 10 MG/325 MG TAB PO PRN ×4 (03:31→22:38)
[2018-01-30 04:00] VITALS: BP 110/70; PULSE 105; PULSE 96; RESP 20; TEMP 98.4; O2SAT 100
[2018-01-30] MEDS: VANCOMYCIN INJ 1,400 MG in SODIUM CHLORID 0.9% 500 ML INJ 500 ML IV SCH ×2 (05:00→20:30)
--- NOTE | 2018-01-30 06:51 | RADRPT ---
EXAM DATE/TIME: 01/30/2018 06:12 [facility] COMPARISON: No previous studies available for comparison. INDICATIONS : Left arm swelling. MEDICAL HISTORY : Carcinoma, breast. . Anxiety. Substance abuse. Chemotherapy. SURGICAL HISTORY : Tubal ligation. Mastectomy, right. Exploratory abdominal sugery. ENCOUNTER: Initial ACUITY: 1 day PAIN SCORE: 0/10 LOCATION: Left arm. FINDINGS: There is spontaneous flow documented in the brachial, basilic, cephalic, axillary, and subclavian vei ns. The vessels are compressible and augmentation response is documented. No filling defects are se en. The flow is phasic with respiration. Direction of flow in the jugular vein is caudal. CONCLUSION: Negative study. No venous thrombosis of the left upper extremity. Marcus Burroughs MD on January 30, 2018 at 6:50 Board Certified Radiologist. This report was verified electronically.
[2018-01-30 08:33] VITALS: BP 101/58; PULSE 95; RESP 20; TEMP 98.3; O2SAT 98
[2018-01-30] MEDS: SODIUM CHLORIDE 0.9% FLUSH 10 ML FLUSH IV FLUSH SCH ×2 (09:00→20:33)
[2018-01-30] MEDS: SENNOSIDES 8.6 MG TAB PO SCH ×2 (09:00→20:29)
[2018-01-30] MEDS: oxyCODONE HCL 20 MG CONTROLLED RELEASE TAB PO SCH ×2 (09:27→20:29)
[2018-01-30] MEDS: DOCUSATE SODIUM 50 MG/SENNA 8.6 MG TAB PO SCH ×2 (09:27→20:29)
[2018-01-30] MEDS: MAGNESIUM OXIDE 400 MG TAB PO SCH ×2 (09:28→20:29)
[2018-01-30 11:46] VITALS: BP 109/75; PULSE 107; RESP 18; TEMP 99.9; O2SAT 96
[2018-01-30 13:08] LABS: HEMATOCRIT 30.2 % (35.0-46.0); MEAN CORPUSCULAR HEMOGLOBIN 27.5 PG (27.0-34.0); MEAN CORPUSCULAR HGB CONC 33.2 % (32.0-36.0); MEAN PLATELET VOLUME 7.1 FL (7.0-11.0); PLATELET COUNT 1065 TH/MM3 (150-450); RED BLOOD COUNT 3.64 MIL/MM3 (4.00-5.30); WHITE BLOOD COUNT 17.6 TH/MM3 (4.0-11.0)
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
[2018-01-30 15:44] VITALS: BP 102/58; PULSE 106; RESP 60; TEMP 98.2; O2SAT 97
[2018-01-30] MEDS ORDERED: PHARMACY ORDERED LAB-VANCO TROUGH ONE (16:45)
[2018-01-30] MEDS ORDERED: VANCOMYCIN INJ 1,400 MG in SODIUM CHLORID 0.9% 500 ML INJ 500 ML IV SCH (19:45)
[2018-01-30 20:00] VITALS: BP 117/58; PULSE 102; RESP 18; TEMP 98.1; O2SAT 96
[2018-01-31] VITALS (7 sets, daily range): BP systolic 106–153; BP diastolic 56–117; PULSE 96–107; RESP 18–20; TEMP 97.9–98.4; O2SAT 95–99
[2018-01-31] MEDS: PIPERACIL-TAZO 3.375 GM PREMIX 50 ML IV SCH ×4 (03:51→21:52)
[2018-01-31] MEDS: oxyCODONE/ACETAMINOPHEN 10 MG/325 MG TAB PO PRN ×3 (03:51→19:14)
[2018-01-31] MEDS: SODIUM CHLOR 0.9% 1000 ML INJ 1,000 ML IV SCH ×3 (03:55→14:03)
[2018-01-31] MEDS: VANCOMYCIN INJ 1,400 MG in SODIUM CHLORID 0.9% 500 ML INJ 500 ML IV SCH ×2 (08:02→21:52)
[2018-01-31] MEDS: DOCUSATE SODIUM 50 MG/SENNA 8.6 MG TAB PO SCH ×2 (08:07→21:54)
[2018-01-31] MEDS: SODIUM CHLORIDE 0.9% FLUSH 10 ML FLUSH IV FLUSH SCH ×2 (08:07→21:52)
[2018-01-31] MEDS: MAGNESIUM OXIDE 400 MG TAB PO SCH ×2 (08:08→21:53)
[2018-01-31] MEDS: oxyCODONE HCL 20 MG CONTROLLED RELEASE TAB PO SCH ×2 (08:08→21:53)
[2018-01-31] MEDS: SENNOSIDES 8.6 MG TAB PO SCH ×2 (08:08→21:54)
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
[2018-01-31 08:46] LABS: AUTOMATED NEUTROPHIL # 12.2 TH/MM3 (1.8-7.7); BASOPHIL # 0.1 TH/MM3 (0-0.2); BASOPHIL % 0.8 % (0.0-2.0); EOSINOPHIL # 0.1 TH/MM3 (0-0.4); EOSINOPHIL % 0.8 % (0.0-4.0); HEMATOCRIT 29.5 % (35.0-46.0); HEMOGLOBIN 9.7 GM/DL (11.6-15.3); LYMPH % 8.7 % (9.0-44.0); LYMPHOCYTE # 1.3 TH/MM3 (1.0-4.8); MEAN CELL VOLUME 82.9 FL (80.0-100.0); MEAN CORPUSCULAR HEMOGLOBIN 27.2 PG (27.0-34.0); MEAN CORPUSCULAR HGB CONC 32.8 % (32.0-36.0); MEAN PLATELET VOLUME 7.1 FL (7.0-11.0); MONO % 7.1 % (0.0-8.0); NEUT % 82.6 % (16.0-70.0); PLATELET COUNT 1093 TH/MM3 (150-450); RED BLOOD COUNT 3.56 MIL/MM3 (4.00-5.30); RED CELL DISTRIBUTION WIDTH 19.7 % (11.6-17.2); WHITE BLOOD COUNT 14.8 TH/MM3 (4.0-11.0)
[2018-01-31 09:09] LABS: ALBUMIN 1.7 GM/DL (3.4-5.0); AST (GOT) 31 U/L (15-37); BICARBONATE 28.4 MEQ/L (21.0-32.0); BLOOD UREA NITROGEN 5 MG/DL (7-18); CALCIUM 8.8 MG/DL (8.5-10.1); CHLORIDE 103 MEQ/L (98-107); CREATININE 0.67 MG/DL (0.50-1.00); GLOMERULAR FILTRATION RATE 114 ML/MIN (>89); GLUCOSE,RANDOM 82 MG/DL (74-106); MAGNESIUM 1.7 MG/DL (1.5-2.5); SODIUM (NA) 140 MEQ/L (136-145)
[2018-01-31 09:10] LABS: ALT (GPT) 31 U/L (10-53); PHOSPHORUS 3.9 MG/DL (2.5-4.9)
[2018-01-31 09:12] LABS: ALKALINE PHOSPHATASE 79 U/L (45-117); TOTAL BILIRUBIN ADULT 0.3 MG/DL (0.2-1.0); TOTAL PROTEIN 6.2 GM/DL (6.4-8.2)
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
[2018-01-31 12:33] LABS: INTERNATIONAL NORMALIZED RATIO 1.1 RATIO; PROTHROMBIN TIME - PATIENT 11.3 SEC (9.8-11.6)
[2018-01-31 12:53] LABS: CARCINOEMBRYONIC ANTIGEN 4.6 NG/ML (0.2-5.0)
[2018-01-31] MEDS ORDERED: fentaNYL CITRATE 250 MCG/5 ML AMP ONE (16:46)
[2018-01-31] MEDS ORDERED: MIDAZOLAM HCL 2 MG/2 ML VIAL ONE (16:46)
[2018-01-31] MEDS ORDERED: LIDOCAINE HCL 1% 20 ML VIAL ONE (17:02)
[2018-01-31] MEDS ORDERED: *MEPERIDINE 25 MG INJ VIAL PERIprocedural Use ONLY ONE (17:58)
[2018-01-31] MEDS ORDERED: PHARMACY ORDERED LAB ONE (19:45)
[2018-01-31] MEDS: LORazepam 2 MG TAB PO PRN (21:53)
[2018-01-31] MEDS: diphenhydrAMINE HCL 50 MG CAP PO PRN (21:53)
[2018-02-01] VITALS (8 sets, daily range): BP systolic 105–150; BP diastolic 63–85; PULSE 97–110; RESP 18–20; TEMP 97.6–99.3; O2SAT 98–100
[2018-02-01] MEDS: PIPERACIL-TAZO 3.375 GM PREMIX 50 ML IV SCH ×4 (02:54→21:57)
[2018-02-01] MEDS: oxyCODONE/ACETAMINOPHEN 10 MG/325 MG TAB PO PRN ×3 (02:54→23:35)
[2018-02-01] MEDS: SODIUM CHLOR 0.9% 1000 ML INJ 1,000 ML IV SCH ×3 (04:07→23:36)
[2018-02-01] MEDS: diphenhydrAMINE HCL 25 MG CAP PO PRN ×3 (04:13→15:18)
[2018-02-01] MEDS: LORazepam 2 MG TAB PO PRN (04:13)
[2018-02-01] MEDS: SODIUM CHLORIDE 0.9% FLUSH 10 ML FLUSH IV FLUSH SCH ×2 (09:00→21:19)
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
[2018-02-01] MEDS: oxyCODONE HCL 20 MG CONTROLLED RELEASE TAB PO SCH ×2 (10:25→21:19)
[2018-02-01] MEDS: MAGNESIUM OXIDE 400 MG TAB PO SCH ×2 (10:25→21:18)
[2018-02-01] MEDS: SENNOSIDES 8.6 MG TAB PO SCH ×2 (10:25→21:19)
[2018-02-01] MEDS: DOCUSATE SODIUM 50 MG/SENNA 8.6 MG TAB PO SCH ×2 (10:26→21:18)
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
[2018-02-01] MEDS: VANCOMYCIN INJ 1,400 MG in SODIUM CHLORID 0.9% 500 ML INJ 500 ML IV SCH ×2 (13:03→19:57)
[2018-02-01] MEDS: MORPHINE SULFATE 4 MG/ML INJ IV PUSH PRN ×2 (18:37→21:56)
[2018-02-01] MEDS: diphenhydrAMINE HCL 50 MG CAP PO PRN (21:18)
[2018-02-01 22:30] LABS: HEMATOCRIT 28.4 % (35.0-46.0); HEMOGLOBIN 9.1 GM/DL (11.6-15.3)
[2018-02-01 23:06] LABS: CA 15-3 78.9 U/ML (0.0-32.4)
[2018-02-02 00:18] VITALS: BP 154/72; PULSE 105; RESP 18; TEMP 98.9; O2SAT 95
[2018-02-02] MEDS: PIPERACIL-TAZO 3.375 GM PREMIX 50 ML IV SCH ×2 (02:47→09:24)
[2018-02-02] MEDS: MORPHINE SULFATE 4 MG/ML INJ IV PUSH PRN ×2 (02:48→11:08)
[2018-02-02 03:17] VITALS: PULSE 99
[2018-02-02] MEDS: diphenhydrAMINE HCL 25 MG CAP PO PRN ×2 (04:03→09:11)
[2018-02-02 05:04] VITALS: BP 100/59; PULSE 96; RESP 18; TEMP 98.1; O2SAT 94
[2018-02-02] MEDS: oxyCODONE/ACETAMINOPHEN 10 MG/325 MG TAB PO PRN ×2 (06:01→13:29)
[2018-02-02 08:00] VITALS: BP 120/73; PULSE 102; RESP 18; TEMP 98.2; O2SAT 96
[2018-02-02] MEDS: SODIUM CHLORIDE 0.9% FLUSH 10 ML FLUSH IV FLUSH SCH (09:00)
[2018-02-02] MEDS: SENNOSIDES 8.6 MG TAB PO SCH (09:07)
[2018-02-02] MEDS: oxyCODONE HCL 20 MG CONTROLLED RELEASE TAB PO SCH (09:07)
[2018-02-02] MEDS: MAGNESIUM OXIDE 400 MG TAB PO SCH (09:07)
[2018-02-02] MEDS: DOCUSATE SODIUM 50 MG/SENNA 8.6 MG TAB PO SCH (09:08)
[2018-02-02 09:18] LABS: AUTOMATED NEUTROPHIL # 7.8 TH/MM3 (1.8-7.7); BASOPHIL # 0.1 TH/MM3 (0-0.2); BASOPHIL % 1.3 % (0.0-2.0); EOSINOPHIL # 0.2 TH/MM3 (0-0.4); EOSINOPHIL % 1.5 % (0.0-4.0); HEMATOCRIT 27.2 % (35.0-46.0); HEMOGLOBIN 8.9 GM/DL (11.6-15.3); LYMPH % 14.4 % (9.0-44.0); LYMPHOCYTE # 1.5 TH/MM3 (1.0-4.8); MEAN CELL VOLUME 83.6 FL (80.0-100.0); MEAN CORPUSCULAR HEMOGLOBIN 27.5 PG (27.0-34.0); MEAN CORPUSCULAR HGB CONC 32.8 % (32.0-36.0); MEAN PLATELET VOLUME 6.9 FL (7.0-11.0); MONO % 8.2 % (0.0-8.0); MONOCYTE # 0.9 TH/MM3 (0-0.9); NEUT % 74.6 % (16.0-70.0); PLATELET COUNT 1073 TH/MM3 (150-450); RED BLOOD COUNT 3.25 MIL/MM3 (4.00-5.30); RED CELL DISTRIBUTION WIDTH 20.4 % (11.6-17.2); WHITE BLOOD COUNT 10.4 TH/MM3 (4.0-11.0)
[2018-02-02 09:31] LABS: ALBUMIN 1.7 GM/DL (3.4-5.0); AST (GOT) 24 U/L (15-37); BICARBONATE 26.4 MEQ/L (21.0-32.0); BLOOD UREA NITROGEN 4 MG/DL (7-18); CALCIUM 8.8 MG/DL (8.5-10.1); CHLORIDE 107 MEQ/L (98-107); GLOMERULAR FILTRATION RATE 93 ML/MIN (>89); GLUCOSE,RANDOM 81 MG/DL (74-106); MAGNESIUM 1.8 MG/DL (1.5-2.5); SODIUM (NA) 142 MEQ/L (136-145)
[2018-02-02 09:35] LABS: ALKALINE PHOSPHATASE 76 U/L (45-117); ALT (GPT) 23 U/L (10-53); PHOSPHORUS 4.3 MG/DL (2.5-4.9); TOTAL BILIRUBIN ADULT 0.2 MG/DL (0.2-1.0); TOTAL PROTEIN 6.4 GM/DL (6.4-8.2)
[2018-02-02] MEDS: SODIUM CHLOR 0.9% 1000 ML INJ 1,000 ML IV SCH (10:07)
[2018-02-02] MEDS: VANCOMYCIN INJ 1,400 MG in SODIUM CHLORID 0.9% 500 ML INJ 500 ML IV SCH (10:59)
[2018-02-02 12:00] VITALS: BP 112/65; PULSE 99; RESP 18; TEMP 98.4; O2SAT 96
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
[2018-02-02] MEDS ORDERED: LORA-475 PO (12:28)
[2018-02-02] MEDS ORDERED: oxyCODONE SR PO (12:28)
[2018-02-02] MEDS ORDERED: BENA25CA4 PO (12:28)
[2018-02-02] MEDS ORDERED: MAGN400T2 PO (12:28)
[2018-02-02] MEDS ORDERED: OXYC1TAB36 PO (12:28)
[2018-02-02] MEDS ORDERED: SENN187 PO (12:28)
[2018-02-02] MEDS ORDERED: DIPH50CA PO (12:28)
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
[2018-02-02] MEDS ORDERED: WALKER WHEELS/F1 MIS (12:37)
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
[2018-02-02] MEDS ORDERED: DOXY150T6 PO (14:40)
[2018-02-03] MEDS ORDERED: PHARMACY ORDERED LAB ONE (07:45)
== END 2018-02-02 15:35 | disposition home or self-care (01) | DRG 872 ==
LOC: NEPD 13:03 → NEDA 20:59 → NEDH 01-26 01:05 → N05B 01-26 12:57
PROVIDERS: ADMIT Hospitalist; ATTEND Hospitalist
PROC: 0FB23ZX Excision of Left Lobe Liver, Percutaneous Approach, Diagnostic (ICD-10-PCS; principal; 2018-01-31)
DX: A41.9 Sepsis, unspecified organism (principal); C78.7 Secondary malignant neoplasm of liver and intrahepatic bile duct; E87.2 Acidosis; C79.89 Secondary malignant neoplasm of other specified sites; L03.115 Cellulitis of right lower limb; N63.20 Unspecified lump in the left breast, unspecified quadrant; R59.0 Localized enlarged lymph nodes; F14.10 Cocaine abuse, uncomplicated; M54.5 Low back pain; R47.81 Slurred speech; M79.604 Pain in right leg; F17.210 Nicotine dependence, cigarettes, uncomplicated; F12.90 Cannabis use, unspecified, uncomplicated; R00.0 Tachycardia, unspecified; E87.6 Hypokalemia; R32 Unspecified urinary incontinence; S70.11XA Contusion of right thigh, initial encounter; M51.37 Other intervertebral disc degeneration, lumbosacral region; Z91.19 Patient's noncompliance with other medical treatment and regimen; N95.1 Menopausal and female climacteric states; V18.4XXA Pedal cycle driver injured in noncollision transport accident in traffic accident, initial encounter; Y93.55 Activity, bike riding; Z85.3 Personal history of malignant neoplasm of breast; Z90.11 Acquired absence of right breast and nipple; Z92.21 Personal history of antineoplastic chemotherapy
CPT/HCPCS: 47000; 71045; 71260; 72132; 72146; 72148; 73502; 73551; 74177; 76937; 77012; 78306; 80048; 80053; 80202; 80307; 81001; 82378; 82565; 83036; 83605; 83735; 84100; 84439; 84443; 84703; 85014; 85018; 85025; 85027; 85610; 85652; 85730; 86140; 86300; 87040; 87804; 88307; 93971; 96361; 96365; 96366; 96375; 99223; A9503; J2060; J2175; J2250; J2270; J2543; J3010; J3370; J3475; J3480; J7030; J7040; J7050; Q0163; Q9963; Q9967

== ENCOUNTER 2018-09-08 09:18 | Inpatient (IN) ==
[2018-09-08] MEDS ORDERED: Morphine Sulfate Inj 2 MG/ML Vial IV.PUSH ONE (10:57)
[2018-09-08 11:19] LABS: Baso % (Auto) 0.9 % (0.0-2.0); Eos # (Auto) 0.1 th/mm3 (0.0-0.4); Eos % (Auto) 2.2 % (0.0-4.0); Hematocrit 37.4 % (35.0-46.0); Hemoglobin 12.6 gm/dL (11.6-15.3); Lymph # (Auto) 1.5 th/mm3 (1.0-4.8); Lymph % (Auto) 27.2 % (9.0-44.0); Mean Corpuscular HGB Conc 33.6 % (32.0-36.0); Mean Corpuscular Hemoglobin 31.2 pg (27.0-34.0); Mean Corpuscular Volume 92.9 fL (80.0-100.0); Mono # (Auto) 0.4 th/mm3 (0.0-0.9); Mono % (Auto) 7.5 % (0.0-8.0); Neut # (Auto) 3.5 th/mm3 (1.8-7.7); Neut % (Auto) 62.2 % (16.0-70.0); Platelet Count 447 th/mm3 (150-450); Red Blood Count 4.03 mil/mm3 (4.00-5.30); Red Cell Distribution Width 16.1 % (11.6-17.2); White Blood Count 5.7 th/mm3 (4.0-11.0)
[2018-09-08 11:46] LABS: Alanine Aminotransferase 13 U/L (10-53); Alkaline Phosphatase 170 U/L (45-117); Total Protein 8.2 g/dL (6.4-8.2)
--- NOTE | 2018-09-08 11:50 | XR ---
EXAM DATE: 09/08/2018 10:57 AM EDT AGE/SEX: 47 years / Female INDICATIONS: Nausea and vomiting. CLINICAL DATA: This is the patient's initial encounter. Patient reports that signs and symptoms have been present for 1 day and indicates a pain score of 4/10. MEDICAL/SURGICAL HISTORY: . Carcinoma, breast. Carcinoma, liver. Mastectomy, right. [place] [facility] [place]31/2018. . FINDINGS: A single erect view of the abdomen demonstrates the lower lungs to be clear.No evidence of free intra peritoneal gas. The visualized bowel loops are unremarkable. CONCLUSION: Negative examination. Electronically signed by: Giovanni Hylton MD 09/08/2018 11:49 AM EDT
[2018-09-08 11:53] LABS: Albumin 3.3 g/dL (3.4-5.0); Anion Gap 7 meq/L (5-15); Aspartate Aminotransferase 34 U/L (15-37); Blood Urea Nitrogen 6 mg/dL (7-18); Calcium 9.1 mg/dL (8.5-10.1); Carbon Dioxide 24.7 meq/L (21.0-32.0); Chloride 109 meq/L (98-107); Glomerular Filtration Rate 75 mL/min (>89); Glucose,Random 80 mg/dL (74-106); Lipase 119 U/L (73-393); Sodium 141 meq/L (136-145)
[2018-09-08 11:54] LABS: Potassium 4.3 meq/L (3.5-5.1)
--- NOTE | 2018-09-08 13:39 | CT ---
EXAM DATE: 09/08/2018 12:49 PM EDT AGE/SEX: 47 years / Female INDICATIONS: Right upper quadrant pain and diarrhea. CLINICAL DATA: This is the patient's initial encounter. Patient reports that signs and symptoms have been present for 1 day and indicates a pain score of 10/10. MEDICAL/SURGICAL HISTORY: Carcinoma, breast. Liver cancer. None. ORAL CONTRAST: No oral contrast ingested. RADIATION DOSE: 4.65 CTDI (mGy) [place] [facility] [place]28/2018. . TECHNIQUE: Multiple contiguous axial images were obtained through the abdomen and pelvis following b olus infusion of 80 ml Omnipaque 350 (iohexol) nonionic water-soluble contrast as a single exam dos e. No oral contrast ingested. Using automated exposure control and adjustment of the mA and/or kV ac cording to patient size, radiation dose was kept as low as reasonably achievable to obtain optimal di agnostic quality images. DICOM format image data is available electronically for review and comparis on. FINDINGS: LOWER LUNGS: The visualized lower lungs are clear. LIVER: There is a 1.3 cm low-density mass in the left lobe of the liver adjacent the falciform ligam ent which corresponds to a larger 1.7 cm mass noted on prior exam. There may be adjacent focal fat ex tending more inferiorly. Liver is otherwise unremarkable without intrahepatic ductal dilatation. Comm on bile duct is the upper limits of normal measuring up to 6 mm. No calcified gallstones. SPLEEN: Homogeneous density without enlargement. PANCREAS: Unremarkable without mass or calcification. KIDNEYS: Kidneys demonstrate symmetrical enhancement and are symmetrical in size without evidence fo r radiopaque renal calculi or hydronephrosis. ADRENAL GLANDS: Unremarkable. AORTA: Purnima-aneurysmal. BOWEL/MESENTERY: Appendix is visualized and normal in appearance. There is a single loop of distende d distal ileum measuring up to 4 cm with prominent fecalization in the right lower quadrant. There is trace amount of mesenteric free fluid adjacent distal loop of bowel. There is no significant bowel w all thickening. Proximal and distal small bowel loops are normal in caliber. Colon is normal in appea kusum. ABDOMINAL WALL: Diastasis recti RETROPERITONEUM: No evidence of adenopathy in the retrocrural, para-aortic, or deep pelvic regions. BLADDER: Contours are smooth. REPRODUCTIVE: Prominent endometrium. BONY STRUCTURES: Degenerative changes in the lower lumbar spine at L5-S1. Diffusely heterogeneous ma rrow throughout with multiple ill-defined lytic lesions most prominently in the left ilium. CONCLUSION: 1. Focal loop of dilated distal ileum in the right lower quadrant with proximal and distal transitio n points and trace amount of residual ascites. There is prominent fecalization within this loop. In M arch, patient had a large heterogeneous mixed density mass extending through the iliopsoas/iliac robert a. Findings are concerning for focal small bowel obstruction potentially related to adhesions. No aneesh dence for bowel infarction or perforation at this time. No focal abscess. 2. Diffusely heterogeneous marrow with multiple ill-defined lytic lytic most prominently involving t he left ilium consistent with diffuse osseous metastatic disease. 3. Previously described lesion in the left lobe of the liver is slightly decreased in size from 1.7 cm to 1.3 cm. Suspect adjacent focal fat near the falciform ligament. Electronically signed by: Jaron King MD 09/08/2018 1:38 PM EDT
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
[2018-09-08] MEDS ORDERED: Ketorolac Inj 30 MG/ML (IVP) Vial IV.PUSH PRN ×2 (16:05)
[2018-09-08] MEDS: Sod Chloride 0.9% Inj 1,000 ML IV.CONT SCH (16:44)
[2018-09-08] MEDS ORDERED: Acetaminophen 325 MG Tablet PO PRN (16:56)
[2018-09-08] MEDS ORDERED: Morphine Inj 4 MG/ML Vial IV.PUSH PRN ×2 (16:56→17:30)
[2018-09-08] MEDS ORDERED: Naloxone Inj 0.4 MG/ML Vial IV.PUSH PRN (16:56)
[2018-09-08] MEDS: Ketorolac Inj 30 MG/ML (IVP) Vial IV.PUSH SCH (17:49)
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
[2018-09-08] MEDS ORDERED: ceFAZolin 2 GM Premix Inj 2 GM/50 ML PIGGYBACK IV.SIG PRN (18:36)
[2018-09-09] MEDS: Ketorolac Inj 30 MG/ML (IVP) Vial IV.PUSH SCH ×3 (00:39→12:48)
[2018-09-09 01:26] LABS: Bilirubin,Urine Negative (Negative); Clarity,Urine Clear (Clear); Color,Urine Straw (Yellw/Straw); Glucose,Urine (UA) Negative (Negative); Leukocyte Esterase,Urine Negative (Negative); Nitrite,Urine Negative (Negative); Specific Gravity,Urine 1.011 (1.002-1.035); Squamous Epithelial Cell,Urine 1 /hpf (0-5)
[2018-09-09] MEDS ORDERED: Chlorhexidine Gluconate 2% 1 Pack (2 Cloths) TOPICAL ONE (02:26)
[2018-09-09] MEDS ORDERED: Sodium Chlor 0.9% Inj 500 ML IV.SIG SCH (03:00)
[2018-09-09] MEDS: Sod Chloride 0.9% Inj 1,000 ML IV.CONT SCH ×3 (04:05→23:07)
[2018-09-09] MEDS ORDERED: Bupivacaine/Epinephrine Inj 0.25% 50 ML Vial ONE (08:28)
[2018-09-09] MEDS ORDERED: hydrALAZINE HCl Inj 20 MG/ML Vial IV.PUSH ONE (09:28)
[2018-09-09] MEDS ORDERED: Lidocaine PF 1% Inj 5 ML Syringe OTHER ONE (09:28)
[2018-09-09] MEDS ORDERED: Normosol-R pH 7.4 Inj 1,000 ML IV.CONT ONE (09:28)
[2018-09-09] MEDS ORDERED: Ketorolac Inj 30 MG/ML (IVP) Vial IV.PUSH ONE (09:28)
[2018-09-09] MEDS ORDERED: *Meperidine Inj 25 MG/ML Vial PERIprocedural Use ONLY ONE (11:30)
[2018-09-09] MEDS ORDERED: Sugammadex Inj 200 MG/2 ML Vial IV.PUSH ONE (11:33)
[2018-09-09] MEDS ORDERED: fentaNYL Citrate Inj 100 MCG/2 ML Ampul ONE ×2 (11:34)
[2018-09-09] MEDS ORDERED: Morphine Inj 4 MG/ML Vial ONE (11:34)
[2018-09-09] MEDS ORDERED: *morphine SULFATE 4 MG/ML PERIprocedure ONLY ONE ×2 (11:41→11:48)
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
[2018-09-09] MEDS ORDERED: HYDROmorphone PF Inj 2 MG/ML Vial ONE (11:52)
--- NOTE | 2018-09-09 14:04 | P.PNFP ---
Subjective Interval history: Patient s/p small bowel resection with side to side anastomosis. Patient is doing well. Mom at bedside. Pain is controlled. Patient currently on liquid diet. Ordered some jello. Denies fevers, CP, SOB, and N/V. Mom and patient interested in speaking with hospice about goals of care. <Pat Martinez T - 09/09/18 14:18> Results - Labs Result diagrams: 09/08/18 10:25 09/08/18 10:25 <David Jorgensen - 09/09/18 15:16> Urine 09/09/18 Range/Units 00:40 Urine Color Straw (Yellw/Straw) Urine Clarity Clear (Clear) Urine pH 5.0 (5.0-8.5) Ur Specific [place]gins 1.011 (1.002-1.035) Urine Protein Negative (Neg-Trace) mg/dL Urine Glucose (UA) Negative (Negative) mg/dL <David Jorgensen - 09/09/18 15:16> Urine 09/09/18 Range/Units 00:40 Urine Color Straw (Yellw/Straw) Urine Clarity Clear (Clear) Urine pH 5.0 (5.0-8.5) Ur Specific [place]gins 1.011 (1.002-1.035) Urine Protein Negative (Neg-Trace) mg/dL Urine Glucose (UA) Negative (Negative) mg/dL <Pat Martinez T - 09/09/18 14:04> Physical Exam Vital signs: Vital Signs 09/08/18 15:56 09/08/18 17:48 09/08/18 20:00 Temperature 97.3 F L Pulse Rate 99 H 81 Respiratory Rate 18 18 18 Blood Pressure 133/78 128/82 Pulse Oximetry 97 95 09/09/18 00:00 09/09/18 04:00 09/09/18 11:20 Temperature 97.6 F 98.1 F 96.0 F L Pulse Rate 84 74 100 H Respiratory Rate 18 18 20 Blood Pressure 115/82 121/76 119/66 Pulse Oximetry 95 100 100 09/09/18 11:35 09/09/18 11:50 09/09/18 12:05 Temperature 97.5 F L Pulse Rate 100 H 104 H 97 H Respiratory Rate 18 18 20 Blood Pressure 114/67 112/60 103/60 Pulse Oximetry 100 100 100 Intake & Output 09/08/18 09/09/18 09/09/18 18:59 06:59 18:59 Intake Total 1000 / 1000 2150 / 2150 Output Total 50 / 50 Balance 1000 / 1000 2099 Weight 54.431 kg 56 kg Intake: IV 1000 / 1000 1150 / 1150 NS Inj 1,000 ML @ 100 mls/hr IV 1000 / 1000 .CONT .Q10H PRATIBHA Rx#:[id number] LR 1000 mL Inj 1,000 ML @ 30 1000 / 1000 mls/hr IV.SIG .Q24H PRATIBHA Rx#: [id number] Ancef 2 GM Premix Inj 2 gm In 50 / 50 50 ml @ 100 mls/hr IV.SIG FOOD CRITIC PRN Rx#:[id number] Flagyl 500 MG Inj 100 ML @ 100 100 / 100 mls/hr IV.SIG FOOD CRITIC PRN Rx#: [id number] Anesthesia Amount 1000 / 1000 Output: Estimated Blood Loss 50 / 50 Other: # Voids 2 Date of Last Bowel Movement 09/08/18 09/08/18 Weight On Admission 54.431 kg <David Jorgensen - 09/09/18 15:16> Vital Signs 09/08/18 15:00 09/08/18 15:56 09/08/18 17:48 Temperature Pulse Rate 74 99 H Respiratory Rate 18 Blood Pressure 123/65 133/78 Pulse Oximetry 98 97 09/08/18 20:00 09/09/18 00:00 09/09/18 04:00 Temperature 97.3 F L 97.6 F 98.1 F Pulse Rate 81 84 74 Respiratory Rate 18 Blood Pressure 128/82 115/82 121/76 Pulse Oximetry 95 95 100 09/09/18 11:20 09/09/18 11:35 09/09/18 11:50 Temperature 96.0 F L Pulse Rate 100 H 100 H 104 H Respiratory Rate 20 18 18 Blood Pressure 119/66 114/67 112/60 Pulse Oximetry 100 100 100 09/09/18 12:05 Temperature 97.5 F L Pulse Rate 97 H Respiratory Rate 20 Blood Pressure 103/60 Pulse Oximetry 100 Intake & Output 09/08/18 09/09/18 09/09/18 18:59 06:59 18:59 Intake Total 1000 / 1000 2150 / 2150 Output Total 50 / 50 Balance 1000 / 1000 2100 / 2100 Weight 54.431 kg 56 kg Intake: IV 1000 / 1000 1150 / 1150 NS Inj 1,000 ML @ 100 mls/hr IV 1000 / 1000 .CONT .Q10H PRATIBHA Rx#:[id number] LR 1000 mL Inj 1,000 ML @ 30 1000 / 1000 mls/hr IV.SIG .Q24H PRATIBHA Rx#: [id number] Ancef 2 GM Premix Inj 2 gm In 50 / 50 50 ml @ 100 mls/hr IV.SIG FOOD CRITIC PRN Rx#:[id number] Flagyl 500 MG Inj 100 ML @ 100 100 / 100 mls/hr IV.SIG FOOD CRITIC PRN Rx#: [id number] Anesthesia Amount 1000 / 1000 Output: Estimated Blood Loss 50 / 50 Other: # Voids 2 Date of Last Bowel Movement 09/08/18 09/08/18 Weight On Admission 54.431 kg <Nneka Martinezcheyenne Huynh - 09/09/18 14:04> Narrative: General: Pleasant female no acute distress Skin: [place] left breast, right breast scar s/p right mastectomy Cardio: Regular rate and rhythm, no murmurs rubs or gallops Pulmonary: Clear to auscultation bilaterally, no wheezes or crackles Abdomen: vertical bandage on abdomen Extremities: No cyanosis or edema Neuro: Alert and oriented x3 <JuanTjPatnikki Huynh - 09/09/18 14:18> Assessment and Plan - Assessment (1) Partial small bowel obstruction Code(s): K56.600 - Partial intestinal obstruction, unspecified as to cause Status: Acute (2) Metastatic breast cancer Code(s): C50.919 - Malignant neoplasm of unspecified site of unspecified female breast Status: Acute (3) Nutrition, metabolism, and development symptoms Code(s): R63.8 - Other symptoms and signs concerning food and fluid intake Status: Acute <David Jorgensen - 09/09/18 15:16> (1) Partial small bowel obstruction Code(s): K56.600 - Partial intestinal obstruction, unspecified as to cause Status: Acute Plan: 47-year-old female with metastatic breast cancer presents to the ED for nausea/ vomiting/diarrhea. 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 s/p POD #0 smal bowel resection with [id number] anastomosis. General surgery following, appreciate their care Start liquid diet Pain control with norco and morphine (2) Metastatic breast cancer Code(s): C50.919 - Malignant neoplasm of unspecified site of unspecified female breast Status: Acute Plan: Patient reports being currently on tamoxifen. Dr. Henriquez, oncologist. Patient does not know what dose she is on. Advised patient to get family member to bring medication from home. Hospice consulted to discuss goals of care with family, appreciate recommendations (3) Nutrition, metabolism, and development symptoms Code(s): R63.8 - Other symptoms and signs concerning food and fluid intake Status: Acute Plan: Fluids: NS 100mls/hr, will discontinue until patient has adequate PO intake Diet: Liquid diet vitals q4h, monitor I & Os DVT ppx: SCDs,Lovenox to begin tonight <Pat Martinez - 09/09/18 14:05> - Attending Attestation The exam, history, and the medical decision-making described in the above note were completed with the assistance of the resident physician. I reviewed and agree with the findings presented. I attest that I had a [id number] encounter with the patient on the same day, and personally performed and documented my assessment and findings in the medical record. <David Jorgensen - 09/09/18 15:16>
[2018-09-09] MEDS: Enoxaparin Inj 40 MG/0.4 ML Syringe SQ SCH (20:23)
[2018-09-10] MEDS: diphenhydrAMINE HCl 12.5 MG/5 ML Elixir UDC PO PRN ×3 (01:28→22:42)
[2018-09-10 05:32] LABS: Baso % (Auto) 0.3 % (0.0-2.0); Hematocrit 32.5 % (35.0-46.0); Lymph # (Auto) 1.1 th/mm3 (1.0-4.8); Lymph % (Auto) 9.2 % (9.0-44.0); Mean Corpuscular HGB Conc 33.8 % (32.0-36.0); Mean Corpuscular Hemoglobin 30.5 pg (27.0-34.0); Mean Corpuscular Volume 90.2 fL (80.0-100.0); Mean Platelet Volume 8.3 fL (7.0-11.0); Mono # (Auto) 0.3 th/mm3 (0.0-0.9); Mono % (Auto) 2.9 % (0.0-8.0); Neut % (Auto) 87.6 % (16.0-70.0); Platelet Count 420 th/mm3 (150-450); White Blood Count 11.5 th/mm3 (4.0-11.0)
[2018-09-10 05:51] LABS: Calcium 8.3 mg/dL (8.5-10.1); Carbon Dioxide 23.9 meq/L (21.0-32.0)
[2018-09-10 05:57] LABS: Potassium 3.8 meq/L (3.5-5.1)
[2018-09-10] MEDS: Morphine Inj 4 MG/ML Vial IV.PUSH PRN ×3 (08:42→20:15)
--- NOTE | 2018-09-10 09:34 | P.PNFP ---
Subjective Interval history: Overnight patient complained of increased pruritus and increased abdominal pain after small bowel resection with anastomosis yesterday. Patient had her first meal this morning and is tolerating mostly liquid diet. She denies passing gas and has yet to have a bowel movement, but endorses having no issues urinating. Hospice has been consulted but have not come by to see the patient yet. Patient would really like to speak to them in regards to her prognosis and future plans. We spoke to patient about the plan to control her pain and keep her comfortable. Marston has been added by surgery for pain management, and we added morphine for breakthrough pain this morning. Patient was agreeable with this plan. Results - Labs Result diagrams: 09/10/18 04:39 09/10/18 04:39 Abnormal lab results 09/10/18 09/10/18 Range/Units 04:39 04:39 WBC 11.5 H (4.0-11.0) th/mm3 RBC 3.60 L (4.00-5.30) mil/mm3 Hgb 11.0 L (11.6-15.3) gm/dL Hct 32.5 L (35.0-46.0) % Neut % (Auto) 87.6 H (16.0-70.0) % Neut # (Auto) 10.0 H (1.8-7.7) th/mm3 Sodium 146 H (136-145) meq/L Chloride 115 H (98-107) meq/L Estimated GFR 73 L (>89) mL/min Calcium 8.3 L D (8.5-10.1) mg/dL Short CBC 09/10/18 Range/Units 04:39 WBC 11.5 H (4.0-11.0) th/mm3 Hgb 11.0 L (11.6-15.3) gm/dL Hct 32.5 L (35.0-46.0) % Plt Count 420 (150-450) th/mm3 BMP 09/10/18 04:39 Sodium 146 H Potassium 3.8 Chloride 115 H Carbon Dioxide 23.9 BUN 7 Creatinine 0.98 Calcium 8.3 L D Physical Exam Vital signs: Vital Signs 09/09/18 11:20 09/09/18 11:35 09/09/18 11:50 Temperature 96.0 F L Pulse Rate 100 H 100 H 104 H Respiratory Rate 20 18 18 Blood Pressure 119/66 114/67 112/60 Pulse Oximetry 100 100 100 09/09/18 12:05 09/09/18 16:00 09/09/18 17:46 Temperature 97.5 F L 97.6 F Pulse Rate 97 H 95 H Respiratory Rate 20 17 Blood Pressure 103/60 95/65 L Pulse Oximetry 100 97 97 09/09/18 18:30 09/09/18 20:00 09/10/18 00:00 Temperature 97.2 F L 97.8 F Pulse Rate 84 78 77 Respiratory Rate 20 20 Blood Pressure 118/74 125/80 134/81 Pulse Oximetry 100 100 09/10/18 04:00 09/10/18 08:00 Temperature 97.3 F L 97.3 F L Pulse Rate 92 H 95 H Respiratory Rate 20 16 Blood Pressure 132/82 137/85 Pulse Oximetry 100 100 Intake & Output 09/09/18 09/10/18 09/10/18 18:59 06:59 18:59 Intake Total 2150 / 0 2029 Output Total 50 / 50 Balance 2099 Weight 56.8 kg Intake: IV 1150 / 1150 230 / 230 NS Inj 1,000 ML @ 100 mls/hr IV 230 / 230 .CONT .Q10H [facility] Rx#:[id number] LR 1000 mL Inj 1,000 ML @ 30 1000 / 1000 mls/hr IV.SIG .Q24H [facility] Rx#: [id number] Ancef 2 GM Premix Inj 2 gm In 50 / 50 50 ml @ 100 mls/hr IV.SIG [employer] PRN Rx#:[id number] Flagyl 500 MG Inj 100 ML @ 100 100 / 100 mls/hr IV.SIG [employer] INS[employer] PRN Rx#: [id number] Oral 1800 / 1800 Anesthesia Amount 1000 / 1000 Output: Estimated Blood Loss 50 / 50 Other: # Voids 4 Date of Last Bowel Movement 09/09/18 Narrative: General: patient is pleasant, laying in hospital bed with mild discomfort after surgery and depressed mood when speaking of prognosis Skin: [place] left breast, right breast scar s/p right mastectomy Cardio: Regular rate and rhythm, no murmurs rubs or gallops Pulmonary: Clear to auscultation bilaterally, no wheezes or crackles Abdomen: vertical bandage on abdomen; 3 midline incisions with staple closures that are clean, dry, and intact Extremities: No cyanosis or edema Neuro: Alert and oriented x3 Psych: mildly depressed mood when speaking about prognosis and diagnosis Assessment and Plan - Assessment (1) Partial small bowel obstruction Code(s): K56.600 - Partial intestinal obstruction, unspecified as to cause Status: Acute Plan: 47-year-old female with metastatic breast cancer presents to the ED for nausea/ vomiting/diarrhea. 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 Henriquez - Hospice consulted to discuss goals of care with family, appreciate recommendations (3) Nutrition, metabolism, and development symptoms Code(s): R63.8 - Other symptoms and signs concerning food and fluid intake Status: Acute Plan: Fluids: Discontinue fluids, adequate PO intake Electrolytes: replete as needed Nutrition: Liquid diet, advance to full liquid diet as tolerated Vitals q4h, monitor I & Os DVT ppx: Lovenox 40mg Disposition: - Patient will remain in hospital for at least 5 more days as we monitor recovery after surgery sdw: Almita Andrade, MS4
--- NOTE | 2018-09-10 13:02 | P.CON ---
History of Present Illness Service: Hematology/Oncology. Consult date: 09/10/18 Reason for Consult: Metastatic Breast Carcinoma. Primary Care Provider: Dayana Talamantes Chief Complaint: Abdominal pain and vomiting. History of Present Illness: Ms. Jo is a 47-year-old female who is well-known to me from my outpatient practice. She has a diagnosis of metastatic breast carcinoma, her disease is estrogen receptor positive, progesterone receptor positive and HER-2 nonamplified. She has been on tamoxifen as a single agent over the past month and a half. She called my office on the morning of 09/08/2018 reporting severe abdominal pain associate with nausea. She was referred to the ER for further workup and evaluation. CT imaging of the abdomen revealed small bowel obstruction. On she was taken to the operating room for management of a high-grade small bowel obstruction, intraoperative findings revealed mesenteric metastatic appearing lymph nodes which were resulting in small bowel obstruction. These were resected along with portions of the small bowel with primary anastomosis. The patient subjectively feels improved at this time. Ms. Jo has a very long and complicated past oncologic history. I will summarize her history as follows: Please note also that the. She was lost to follow-up she was actively abusing cocaine or was incarcerated. She tells me she is now sober and is now living with her mother. She tells me as long as he stays with her mother she would remain sober. 1. She initially presented with a [id number] large neglected lesion involving the inferior aspect of the right breast in 2011. She was under the care of my associate Dr. Snyder. 2. She was advised neoadjuvant systemic chemotherapy followed by surgical resection. 3. Patient was initiated on dose dense Adriamycin and Cytoxan by Dr. Snyder in the summer 2011 and had an excellent response. After completing 4 cycles of treatment she was lost to follow-up. 4. She remained lost to follow-up between August 2012 and April 2013. 5. She was dismissed by Dr. Snyder. 6. She established follow-up with me and in April 2013 was initiated on tamoxifen. 7. She was lost to follow-up again and presented to clinic in October 2013. 8. October 2013 she underwent restaging studies, other than having a large ulcerated mass involving the right inferior portion of the breast and anterior chest wall she had no metastases. 9. June 2014 initiated on neoadjuvant systemic chemotherapy with docetaxel and Cytoxan, she received 4 doses between July and September 2014. She had an excellent response with near complete resolution of the large mass in the anterior chest wall. 10. Advised surgical resection. 11. Was lost to follow-up but eventually reestablish with Dr. Corral and underwent surgical resection. 12. Was lost to follow-up again. 13. Presented to [facility] in the summer 2017 with a large mass in the left breast associated with bulky left axilla lymphadenopathy. Staging studies revealed liver and bone metastases. Liver lesion was biopsied confirming presence of metastatic hormone receptor positive HER-2 negative breast cancer. 14. July 2018 initiated on palliative endocrine therapy with tamoxifen. Review of Systems Constitutional: Reports anorexia, Reports lack of energy, Reports weakness, Denies night sweats Ears, Nose, Mouth, and Throat: Denies difficulty swallowing, Denies dizziness, Denies ear pain, Denies headache(s) Cardiovascular: Denies chest pain, Denies fainting, Denies shortness of breath, Denies shortness of breath when lying down, Denies shortness of breath causing sudden awakening Respiratory: Denies cough Gastrointestinal: Reports abdominal pain, Reports vomiting, Denies change in bowel habits Genitourinary: Denies abnormal periods Musculoskeletal: Denies abnormal walking Skin/Breast: Reports breast swelling (Left breast mass.), Reports breast skin changes Neurologic: Denies abnormal walking Psychiatric: Denies abnormal sleep pattern Endocrine: Denies cold intolerance Hematologic/Lymphatic: Denies easy bleeding Allergic/Immunologic: Denies GI upset with certain foods PMFSH - History History Provided By: Patient - Medical History Medical History: Medical History (Last Updated 09/10/18 @ 12:58 by Eran Henriquez MD) Breast cancer (Acute) Cocaine abuse Liver metastasis Metastatic breast carcinoma Small bowel obstruction - Surgical History Surgical History: Surgical History (Last Reviewed 09/10/18 @ 12:58 by Eran Henriquez MD) Hx of exploratory laparotomy (Acute) H/O right mastectomy (Acute) - Family History Family History: Family History (Last Reviewed 09/10/18 @ 12:58 by Eran Henriquez MD) Mother Hypertension - Social History I have reviewed the patient's Social History: Yes - Tobacco History Second Hand Smoke Exposure: Yes Smoking Status: Former smoker Tobacco Type: Cigarettes - Alcohol History How Often Do You Have a Drink Containing Alcohol: Never - Substance Use History Substance History: Past History - Travel History Recent Travel in the [place] Within the Last 8 Weeks: No Recent Travel Out of the Country Within the Last 8 Weeks: No - Immunization History Tetanus Immunization: Unsure Medications and Allergies Active Medications: Active Medications Acetaminophen (Tylenol) 650 mg PO Q6HR PRN PRN Reason: PAIN SCALE 1 TO 2 Hydrocodone Bitart/Acetaminophen ([place] 7.5/325) 2 tab PO Q6H PRN PRN Reason: PAIN SCALE 6 TO 10 Last Admin: 09/10/18 10:22 Dose: 2 tab Diphenhydramine HCl (Benadryl Liq) 50 mg PO Q6H PRN PRN Reason: ITCHING Last Admin: 09/10/18 01:28 Dose: 50 mg Enoxaparin Sodium (Lovenox Inj) 40 mg SQ Q24H [facility] Last Admin: 09/09/18 20:23 Dose: 40 mg Metronidazole/Sodium Chloride (Flagyl 500 Mg Inj) 100 mls @ 100 mls/hr IV.SIG MSW PRN PRN Reason: ABDOMINAL PAIN Stop: 09/12/18 18:35 Last Infusion: 09/09/18 10:28 Dose: Infused Cefazolin Sodium/Dextrose (Ancef 2 Gm Premix Inj) 2 gm in 50 mls @ 100 mls/hr IV.SIG MSW PRN PRN Reason: ABDOMINAL PAIN Stop: 09/12/18 18:35 Last Infusion: 09/09/18 10:27 Dose: Infused Sodium Chloride (Ns Inj) 500 mls @ 30 mls/hr IV.SIG .Q10H [facility] Last Admin: 09/09/18 03:10 Dose: Not Given Morphine Sulfate (Morphine Inj) 4 mg IV.PUSH Q4H PRN PRN Reason: BREAKTHROUGH PAIN Last Admin: 09/10/18 08:42 Dose: 4 mg Naloxone HCl (Narcan Inj) 0.4 mg IV.PUSH UNSCH PRN PRN Reason: SEE LABEL COMMENTS Ondansetron HCl (Zofran Inj) 4 mg IV.PUSH Q6H PRN PRN Reason: NAUSEA OR VOMITING Last Admin: 09/09/18 18:17 Dose: 4 mg Sodium Chloride (Ns Flush) 2 ml IV.FLUSH BID [facility] Last Admin: 09/10/18 08:48 Dose: Not Given Sodium Chloride (Ns Flush) 2 ml IV.FLUSH PRN PRN PRN Reason: FLUSH AFTER USING IV ACCESS Allergies Allergy/AdvReac Type Severity Reaction Status Date / Time No Known Allergies Allergy Verified 09/08/18 10:13 Home Medications Medication Instructions Recorded Confirmed Type venlafaxine 75 mg PO DAILY 09/08/18 09/08/18 History Physical Exam Vital signs: Vital Signs 09/09/18 16:00 09/09/18 17:46 09/09/18 18:30 Temperature 97.6 F Pulse Rate 95 H 84 Respiratory Rate 17 Blood Pressure 95/65 L 118/74 Pulse Oximetry 97 97 09/09/18 20:00 09/10/18 00:00 09/10/18 04:00 Temperature 97.2 F L 97.8 F 97.3 F L Pulse Rate 78 77 92 H Respiratory Rate 20 20 20 Blood Pressure 125/80 134/81 132/82 Pulse Oximetry 100 100 100 09/10/18 08:00 Temperature 97.3 F L Pulse Rate 95 H Respiratory Rate 16 Blood Pressure 137/85 Pulse Oximetry 100 Intake & Output 09/09/18 09/10/18 09/10/18 18:59 06:59 18:59 Intake Total 2150 / 2150 2029 Output Total 50 / 50 Balance 2099 Weight 56.8 kg Intake: IV 1150 / 1150 230 / 230 NS Inj 1,000 ML @ 100 mls/hr IV 230 / 230 .CONT .Q10H [facility] Rx#:[id number] LR 1000 mL Inj 1,000 ML @ 30 1000 / 1000 mls/hr IV.SIG .Q24H [facility] Rx#: [id number] Ancef 2 GM Premix Inj 2 gm In 50 / 50 50 ml @ 100 mls/hr IV.SIG MSW PRN Rx#:[id number] Flagyl 500 MG Inj 100 ML @ 100 100 / 100 mls/hr IV.SIG MSW PRN Rx#: [id number] Oral 1800 / 1800 Anesthesia Amount 1000 / 1000 Output: Estimated Blood Loss 50 / 50 Other: # Voids 4 Date of Last Bowel Movement 09/09/18 09/09/18 - Constitutional no acute distress - Routine HEENT Exam Head: Present: normocephalic Eye: Present: EOMI, PERRL, normal accommodation ENT: Absent: mucous membranes moist - Routine Neck Exam Present: supple. Absent: lymphadenopathy - Routine Respiratory Exam Present: CTA bilaterally. Absent: accessory muscle use, rales, respiratory distress, rhonchi, wheezes - Routine Cardiovascular Exam Present: RRR, S1, S2. Absent: murmur, gallop, rubs - Routine Abdominal Exam Present: soft Comments: Surgical dressing noted over the abdomen, soft abdomen, positive bowel sounds. No organ enlargement. - Routine Extremities Exam Absent: cyanosis, clubbing, edema - Routine Skin Exam Present: intact - Routine Neurological Exam Present: alert, oriented X3, CN II-XII intact. Absent: sensory deficit, motor deficit - Detailed Neurological Exam: Coma Scale Eye Opening: Spontaneous - Routine Psychiatric Exam Present: normal affect Assessment and Plan - Plan Ms. Jo is a 47-year-old female with a diagnosis of metastatic breast carcinoma. She is well-known to our practice and her history has been outlined in detail above. She now presents the hospital with a small bowel obstruction related to metastatic mesenteric lymph nodes. She did undergo surgical resection of the metastatic lymph nodes and partial small bowel resection as well. Patient reports her symptoms have completely resolved and that she feels much better today as compared to when she came in. She tells me she will be starting a regular diet today. Most recently she has been on palliative systemic therapy with tamoxifen for management for breast cancer. Given the extensive systemic disease burden I will consider initiating her on combination therapy with Faslodex and Ibrance. Recommendations: 1. Metastatic breast carcinoma: Continue tamoxifen while she is in the hospital. I will meet with her in my clinic in the upcoming 1-2 weeks and transition her to more intensive therapy with Faslodex and Ibrance. Ultimately treatment is palliative. The patient may respond well to treatment so long as she maintains follow-up. Unfortunately on multiple occasions in the past she has been lost to follow-up because of her crack cocaine addiction. She presently sober and is living with her mother.
--- NOTE | 2018-09-10 19:22 | P.PN ---
Subjective Interval history: Uneventful night. Patient wants solid food. He denies flatus or BM yet. Pain under fairly good control. Physical Exam Vital signs: Vital Signs 09/09/18 20:00 09/10/18 00:00 09/10/18 04:00 Temperature 97.2 F L 97.8 F 97.3 F L Pulse Rate 78 77 92 H Respiratory Rate 20 20 20 Blood Pressure 125/80 134/81 132/82 Pulse Oximetry 100 100 100 09/10/18 08:00 09/10/18 12:00 09/10/18 14:26 Temperature 97.3 F L 98.0 F Pulse Rate 95 H 106 H Respiratory Rate 16 16 Blood Pressure 137/85 134/91 H Pulse Oximetry 100 98 98 09/10/18 16:00 Temperature 98.8 F Pulse Rate 107 H Respiratory Rate 18 Blood Pressure 144/69 H Pulse Oximetry 94 L Intake & Output 09/10/18 09/10/18 09/11/18 06:59 18:59 06:59 Intake Total 2029 Balance 2029 Weight 56.8 kg Intake: IV 230 / 230 NS Inj 1,000 ML @ 100 mls/hr IV 230 / 230 .CONT .Q10H [facility] Rx#:[id number] Oral 1800 / 1800 Other: # Voids 4 Date of Last Bowel Movement 09/09/18 09/09/18 - Routine Abdominal Exam Present: soft, wound (Dressing dry) Results - Labs CBC & Chem 7: 09/10/18 04:39 09/10/18 04:39 Laboratory Results - last 24 hr 09/10/18 09/10/18 04:39 04:39 WBC 11.5 H RBC 3.60 L Hgb 11.0 L Hct 32.5 L MCV 90.2 MCH 30.5 MCHC 33.8 RDW 16.0 Plt Count 420 MPV 8.3 Neut % (Auto) 87.6 H Lymph % (Auto) 9.2 [place] % (Auto) 2.9 Eos % (Auto) 0.0 Baso % (Auto) 0.3 Neut # (Auto) 10.0 H Lymph # (Auto) 1.1 [place] # (Auto) 0.3 Eos # (Auto) 0.0 Baso # (Auto) 0.0 WBC Differential . Differential Comment Auto diff final Hematology Comments Sodium 146 H Potassium 3.8 Chloride 115 H Carbon Dioxide 23.9 Anion Gap 7 BUN 7 Creatinine 0.98 Estimated GFR 73 L Random Glucose 103 Calcium 8.3 L D Assessment and Plan - Assessment (1) Metastatic breast cancer Code(s): C50.919 - Malignant neoplasm of unspecified site of unspecified female breast Status: Acute (2) Small bowel obstruction due to adhesions Code(s): K56.50 - Intestinal adhesions [bands], unspecified as to partial versus complete obstruction Status: Acute Plan: Await return of bowel function. Patient tolerating full liquids at the current time. Explained to her that she needs to have flatus or BM before advancing to a regular diet. She vocalized understanding of this. Patient's mother present during this discussion and explanation. (3) Hx of exploratory laparotomy Code(s): Z98.890 - Other specified postprocedural states Status: Acute (4) H/O right mastectomy Code(s): Z90.11 - Acquired absence of right breast and nipple Status: Acute (5) Breast cancer Code(s): C50.919 - Malignant neoplasm of unspecified site of unspecified female breast Status: Acute - Plan Discussed Condition With: Patient Patient's mother Nursing staff - Attending Attestation I attest that I had a [id number] encounter with the patient on the same day, and personally performed and documented my assessment and findings in the medical record. The following services were provided during this hospital visit: Chart data review, vital sign assessments/reviewing monitor data Review of consultation notes if present Medication orders/review and/or management Ordering and/or reviewing lab tests Ordering and/or interpreting/reviewing x-rays and/or diagnostic studies Care of the patient and discussion of the patient with the care team Documentation time To help prompt me to consider important information that might be impacting today's encounter and assessment, Information from prior notes written by myself or my colleagues may have been "brought forward/copy and pasted" into today's note.
[2018-09-10] MEDS: Enoxaparin Inj 40 MG/0.4 ML Syringe SQ SCH (20:14)
[2018-09-11] MEDS: Morphine Inj 4 MG/ML Vial IV.PUSH PRN ×4 (00:55→22:30)
[2018-09-11] MEDS: Sod Chloride 0.9% Inj 1,000 ML IV.CONT SCH (04:42)
[2018-09-11 07:12] LABS: Hematocrit 31.3 % (35.0-46.0); Hemoglobin 10.3 gm/dL (11.6-15.3); Mean Corpuscular HGB Conc 32.8 % (32.0-36.0); Mean Corpuscular Hemoglobin 30.7 pg (27.0-34.0); Mean Corpuscular Volume 93.7 fL (80.0-100.0); Platelet Count 394 th/mm3 (150-450); Red Blood Count 3.34 mil/mm3 (4.00-5.30); Red Cell Distribution Width 16.3 % (11.6-17.2); White Blood Count 9.2 th/mm3 (4.0-11.0)
[2018-09-11 07:37] LABS: Anion Gap 6 meq/L (5-15); Blood Urea Nitrogen 5 mg/dL (7-18); Calcium 8.5 mg/dL (8.5-10.1); Carbon Dioxide 25.3 meq/L (21.0-32.0); Chloride 118 meq/L (98-107); Glomerular Filtration Rate Greater Than 89 mL/min (>89); Glucose,Random 74 mg/dL (74-106); Sodium 149 meq/L (136-145)
--- NOTE | 2018-09-11 10:16 | P.PNFP ---
Subjective Interval history: Patient was seen at bedside this morning. There were no acute events overnight. Patient continues to report pruritus particularly around the scalp area. Patient reports feeling overall well and was adamant about beating cancer. Patient says that she understands that prior physicians her prognosis is terminal metastatic cancer she believes that with hope and prayer she will be healed of her cancer and continues to maintain her fallon. Although patient still has not had a bowel movement she reports passing plenty of flatus. She also reports eating some oatmeal and tolerating well without nausea or abdominal pain. Patient does report overall abdominal tenderness but no pinpoint tenderness. Patient denies any subjective fevers, chills, shortness of breath, chest pain, nausea, or vomiting. All questions were answered to the patient's satisfaction. <Dima Unger - 09/11/18 10:15> Results - Labs Result diagrams: 09/11/18 06:33 09/11/18 06:33 <David Jorgensen - 09/11/18 16:46> Abnormal lab results 09/11/18 09/11/18 Range/Units 06:33 06:33 RBC 3.34 L (4.00-5.30) mil/mm3 Hgb 10.3 L (11.6-15.3) gm/dL Hct 31.3 L (35.0-46.0) % Sodium 149 H (136-145) meq/L Chloride 118 H (98-107) meq/L BUN 5 L (7-18) mg/dL Short CBC 09/11/18 Range/Units 06:33 WBC 9.2 (4.0-11.0) th/mm3 Hgb 10.3 L (11.6-15.3) gm/dL Hct 31.3 L (35.0-46.0) % Plt Count 394 (150-450) th/mm3 BMP 09/11/18 06:33 Sodium 149 H Potassium 4.0 Chloride 118 H Carbon Dioxide 25.3 BUN 5 L Creatinine 0.77 Calcium 8.5 <David Jorgensen - 09/11/18 16:46> Abnormal lab results 09/11/18 09/11/18 Range/Units 06:33 06:33 RBC 3.34 L (4.00-5.30) mil/mm3 Hgb 10.3 L (11.6-15.3) gm/dL Hct 31.3 L (35.0-46.0) % Sodium 149 H (136-145) meq/L Chloride 118 H (98-107) meq/L BUN 5 L (7-18) mg/dL Short CBC 09/11/18 Range/Units 06:33 WBC 9.2 (4.0-11.0) th/mm3 Hgb 10.3 L (11.6-15.3) gm/dL Hct 31.3 L (35.0-46.0) % Plt Count 394 (150-450) th/mm3 BMP 09/11/18 06:33 Sodium 149 H Potassium 4.0 Chloride 118 H Carbon Dioxide 25.3 BUN 5 L Creatinine 0.77 Calcium 8.5 <Dima Unger - 09/11/18 10:15> Physical Exam Vital signs: Vital Signs 09/10/18 20:00 09/11/18 00:35 09/11/18 04:00 Temperature 99.2 F 98.7 F 97.2 F L Pulse Rate 115 H 116 H 104 H Respiratory Rate 19 19 19 Blood Pressure 146/88 H 128/79 139/89 Pulse Oximetry 96 97 96 09/11/18 08:00 09/11/18 09:46 09/11/18 12:00 Temperature 98.2 F 98.3 F Pulse Rate 100 H 107 H Respiratory Rate 18 18 Blood Pressure 136/106 H 149/105 H Pulse Oximetry 96 95 95 Intake & Output 09/10/18 09/11/18 09/11/18 18:59 06:59 18:59 Weight 60.7 kg Other: Date of Last Bowel Movement 09/09/18 09/09/18 <David Jorgensen - 09/11/18 16:46> Vital Signs 09/10/18 12:00 09/10/18 14:26 09/10/18 16:00 Temperature 98.0 F 98.8 F Pulse Rate 106 H 107 H Respiratory Rate 16 18 Blood Pressure 134/91 H 144/69 H Pulse Oximetry 98 98 94 L 09/10/18 20:00 09/11/18 00:35 09/11/18 04:00 Temperature 99.2 F 98.7 F 97.2 F L Pulse Rate 115 H 116 H 104 H Respiratory Rate 19 19 19 Blood Pressure 146/88 H 128/79 139/89 Pulse Oximetry 96 97 96 10/21/18 08:00 09/11/18 09:46 Temperature 98.2 F Pulse Rate 100 H Respiratory Rate 18 Blood Pressure 136/106 H Pulse Oximetry 96 95 Intake & Output 09/10/18 09/11/18 09/11/18 18:59 06:59 18:59 Weight 60.7 kg Other: Date of Last Bowel Movement 09/09/18 09/09/18 <Dima Unger - 09/11/18 10:15> Narrative: General: patient is pleasant, laying in hospital bed with mild discomfort after surgery blood positive and hopeful despite terminal prognosis Skin: No rashes or discoloration from previous skin tone. Cardio: Regular rate and rhythm, no murmurs rubs or gallops Pulmonary: Clear to auscultation bilaterally, no wheezes or crackles Abdomen: vertical bandage on abdomen; 3 midline incisions with staple closures that are clean, dry, and intact. No nathalie-incisional erythema or edema. Extremities: No cyanosis or edema Neuro: Alert and oriented x3 Psych: Positive and hopeful about her diagnosis but does endorse understanding that per her physicians there is no cure for her metastatic breast cancer and is ultimately terminal. <Dima Unger - 09/11/18 10:15> Assessment and Plan - Assessment (1) Partial small bowel obstruction Code(s): K56.600 - Partial intestinal obstruction, unspecified as to cause Status: Acute (2) Metastatic breast cancer Code(s): C50.919 - Malignant neoplasm of unspecified site of unspecified female breast Status: Acute (3) Generalized pruritus Code(s): L29.9 - Pruritus, unspecified Status: Acute (4) Nutrition, metabolism, and development symptoms Code(s): R63.8 - Other symptoms and signs concerning food and fluid intake Status: Acute <David Jorgensen - 09/11/18 16:46> (1) Partial small bowel obstruction Code(s): K56.600 - Partial intestinal obstruction, unspecified as to cause Status: Acute Plan: 47-year-old female with metastatic breast cancer presents to the ED for nausea/ vomiting/diarrhea. 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 - s/p POD #2 smal bowel resection with [id number] anastomosis - General surgery following, appreciate their care - Tolerating liquid diet, patient reports that she had some oatmeal and tolerated it well without any nausea, advance to full liquids as tolerated - Pain management: [place] 7.5/325 2 (two) tabs q6hrs for 6-10 pain scale - Pain management: 3mg q4hrs IV push for breakthrough pain -Continue Flagyl until 09/12 -Continue cefazolin until 09/12 (2) Metastatic breast cancer Code(s): C50.919 - Malignant neoplasm of unspecified site of unspecified female breast Status: Acute Plan: - Patient reports being currently on Tamoxifen, dose unknown - Outpatient oncologist: Dr. Henriquez - Hospice consulted to discuss goals of care with family, appreciate recommendations (3) Generalized pruritus Code(s): L29.9 - Pruritus, unspecified Status: Acute Plan: Patient reports generalized pruritus particularly on her scalp. Pruritus most likely due to current medications. -Continue to monitor (4) Nutrition, metabolism, and development symptoms Code(s): R63.8 - Other symptoms and signs concerning food and fluid intake Status: Acute Plan: Fluids: Discontinue fluids, adequate PO intake Electrolytes: replete as needed Nutrition: Liquid diet, advance to full liquid diet as tolerated Vitals q4h, monitor I & Os DVT ppx: Lovenox 40mg Disposition: - Patient will remain in hospital for at least 5 more days as we monitor recovery after surgery sdw: Almita Andrade, MS4 <Dima Unger - 09/11/18 10:03> - Attending Attestation The exam, history, and the medical decision-making described in the above note were completed with the assistance of the resident physician. I reviewed and agree with the findings presented. I attest that I had a [id number] encounter with the patient on the same day, and personally performed and documented my assessment and findings in the medical record. <David Jorgensen - 09/11/18 16:46>
[2018-09-11] MEDS: diphenhydrAMINE HCl 12.5 MG/5 ML Elixir UDC PO PRN (10:31)
--- NOTE | 2018-09-11 14:04 | P.PNGS ---
Subjective Patient reports: feels better, pain is less, tolerating liquids well, flatus, no bowel movement Physical Exam Vital signs: Vital Signs 09/10/18 14:26 09/10/18 16:00 09/10/18 20:00 Temperature 98.8 F 99.2 F Pulse Rate 107 H 115 H Respiratory Rate 18 19 Blood Pressure 144/69 H 146/88 H Pulse Oximetry 98 94 L 96 09/11/18 00:35 09/11/18 04:00 09/11/18 08:00 Temperature 98.7 F 97.2 F L 98.2 F Pulse Rate 116 H 104 H 100 H Respiratory Rate 19 19 18 Blood Pressure 128/79 139/89 136/106 H Pulse Oximetry 97 96 96 09/11/18 09:46 09/11/18 12:00 Temperature 98.3 F Pulse Rate 107 H Respiratory Rate 18 Blood Pressure 149/105 H Pulse Oximetry 95 95 Intake & Output 09/10/18 09/11/18 09/11/18 18:59 06:59 18:59 Weight 60.7 kg Other: Date of Last Bowel Movement 09/09/18 09/09/18 - Routine Abdominal Exam Present: soft, normoactive bowel sounds, tenderness, wound Results - Labs 09/11/18 06:33 09/11/18 06:33 Laboratory Results - last 24 hr 09/11/18 09/11/18 06:33 06:33 WBC 9.2 RBC 3.34 L Hgb 10.3 L Hct 31.3 L MCV 93.7 D MCH 30.7 MCHC 32.8 RDW 16.3 Plt Count 394 MPV 8.0 Sodium 149 H Potassium 4.0 Chloride 118 H Carbon Dioxide 25.3 Anion Gap 6 BUN 5 L Creatinine 0.77 Estimated GFR Greater than 89 Random Glucose 74 Calcium 8.5 - Imaging Imaging: ITS Impressions Abdomen X-Ray 09/08/18 10:57 CONCLUSION: Negative examination. Abdomen/Pelvis CT 09/08/18 10:57 CONCLUSION: 1. Focal loop of dilated distal ileum in the right lower quadrant with proximal and distal transition points and trace amount of residual ascites. There is prominent fecalization within this loop. In January, patient had a large heterogeneous mixed density mass extending through the iliopsoas/iliac fossa. Findings are concerning for focal small bowel obstruction potentially related to adhesions. No evidence for bowel infarction or perforation at this time. No focal abscess. 2. Diffusely heterogeneous marrow with multiple ill-defined lytic lytic most prominently involving the left ilium consistent with diffuse osseous metastatic disease. 3. Previously described lesion in the left lobe of the liver is slightly decreased in size from 1.7 cm to 1.3 cm. Suspect adjacent focal fat near the falciform ligament. Assessment and Plan - Assessment (1) Metastatic breast cancer Code(s): C50.919 - Malignant neoplasm of unspecified site of unspecified female breast Status: Acute (2) Small bowel obstruction due to adhesions Code(s): K56.50 - Intestinal adhesions [bands], unspecified as to partial versus complete obstruction Status: Acute (3) Hx of exploratory laparotomy Code(s): Z98.890 - Other specified postprocedural states Status: Acute (4) H/O right mastectomy Code(s): Z90.11 - Acquired absence of right breast and nipple Status: Acute (5) Breast cancer Code(s): C50.919 - Malignant neoplasm of unspecified site of unspecified female breast Status: Acute - Plan will advance diet and observe widely metastatic breast cancer. pain controlled per patient
[2018-09-11] MEDS: Enoxaparin Inj 40 MG/0.4 ML Syringe SQ SCH (23:15)
[2018-09-12 06:06] LABS: Baso % (Auto) 0.5 % (0.0-2.0); Eos # (Auto) 0.4 th/mm3 (0.0-0.4); Hematocrit 30.5 % (35.0-46.0); Hemoglobin 10.5 gm/dL (11.6-15.3); Lymph # (Auto) 1.3 th/mm3 (1.0-4.8); Lymph % (Auto) 16.3 % (9.0-44.0); Mean Corpuscular HGB Conc 34.5 % (32.0-36.0); Mean Corpuscular Hemoglobin 31.2 pg (27.0-34.0); Mean Corpuscular Volume 90.5 fL (80.0-100.0); Mean Platelet Volume 8.4 fL (7.0-11.0); Mono # (Auto) 0.3 th/mm3 (0.0-0.9); Mono % (Auto) 3.9 % (0.0-8.0); Neut # (Auto) 6.1 th/mm3 (1.8-7.7); Neut % (Auto) 74.3 % (16.0-70.0); Platelet Count 422 th/mm3 (150-450); Red Blood Count 3.38 mil/mm3 (4.00-5.30); White Blood Count 8.2 th/mm3 (4.0-11.0)
[2018-09-12 06:22] LABS: Calcium 8.5 mg/dL (8.5-10.1); Carbon Dioxide 25.7 meq/L (21.0-32.0)
--- NOTE | 2018-09-12 11:23 | P.DIET ---
Nutritional Evaluation Type of nutrition evaluation: initial Nutrition screening: Weight Loss > 10 lbs Subjective Subjective Comments: Had N/V/D ROLL EXAMINER. Diet just advanced to regular and pt ate 50% of her breakfast. Objective - Diagnosis SBO - Objective % IBW: 98 (IBW = 130#) Body Weight Used for Calculations: Actual (58.1 kg) Energy Needs - Lower Range (kCal/kg): 30 Energy Needs - Upper Range (kCal/kg): 35 Lower Limit kCal/kg (kCals): 1,743 Upper Limit kCal/kg (kCals): 2,034 Lower Limit Protein Factor (Grams per Kg): 1.2 Upper Limit Protein Factor (Grams per Kg): 1.5 Lower Protein Needs (Protein): 70 Upper Protein Needs (Protein): 87 Fluid Factor (ml/kg): 35 Estimated Fluid Needs (ml): 2,034 Dietitian Reviewed in Medical Record: Current diet, Curent medications, Intake & Output, Labs, Medical history Diet Order: Regular Objective Comments: Hx includes met breast and liver CA Assessment Assessment: Pt is at high nutrition risk 2' to dx and weight loss. She is s/p open bowel resection and diet has just been advanced to regular. Pt is able to make her preferences known when ordering meals. RD will monitor po intake and assess for the need of supplements. RD following. Recommendations: Continue regular diet Dietitian to Monitor: Lab values, Intake & Output, Diet tolerance, Weight change , PO Intake, Medical course
--- NOTE | 2018-09-12 12:17 | P.PNFP ---
Subjective Interval history: Patient was seen at bedside this morning. There were no acute events overnight. Patient reports that her itching has now gone away she does have an appetite but it is minimal. She also reports continued flatus but no bowel movement. Patient continues to believe that she will be healed from her cancer as she knows someone else who had the same cancer and survived for up to 10 years. Patient understands that her diagnosis is terminal and that she is dying. A long discussion was had with patient about hospice but patient had a lot of apprehension towards hospice stating that they have a bad job and that there are bad news. Reasons for speaking with hospice to include family in future goals of care as well as personal wishes were discussed. Patient initially did not want to talk to hospice but has since agreed to speaking with him. Patient denies any subjective fevers, chills, shortness of breath, chest pain, nausea, or vomiting. All questions were answered to the patient's satisfaction. Results - Labs Result diagrams: 09/12/18 05:16 09/12/18 05:16 Abnormal lab results 09/12/18 09/12/18 Range/Units 05:16 05:16 RBC 3.38 L (4.00-5.30) mil/mm3 Hgb 10.5 L (11.6-15.3) gm/dL Hct 30.5 L (35.0-46.0) % Neut % (Auto) 74.3 H (16.0-70.0) % Eos % (Auto) 5.0 H (0.0-4.0) % Chloride 112 H (98-107) meq/L BUN 6 L (7-18) mg/dL Estimated GFR 75 L (>89) mL/min Random Glucose 73 L (74-106) mg/dL Short CBC 09/12/18 Range/Units 05:16 WBC 8.2 (4.0-11.0) th/mm3 Hgb 10.5 L (11.6-15.3) gm/dL Hct 30.5 L (35.0-46.0) % Plt Count 422 (150-450) th/mm3 BMP 09/12/18 05:16 Sodium 144 Potassium 4.0 Chloride 112 H Carbon Dioxide 25.7 BUN 6 L Creatinine 0.96 Calcium 8.5 Physical Exam Vital signs: Vital Signs 09/11/18 16:00 09/11/18 20:00 09/12/18 00:00 Temperature 97.3 F L 97.3 F L 97.8 F Pulse Rate 103 H 116 H 84 Respiratory Rate 16 19 19 Blood Pressure 160/102 H 143/85 H 141/85 H Pulse Oximetry 92 L 96 97 09/12/18 08:00 Temperature 98.0 F Pulse Rate 92 H Respiratory Rate 18 Blood Pressure 158/110 H Pulse Oximetry 95 Intake & Output 09/11/18 09/12/18 09/12/18 18:59 06:59 18:59 Weight 58.1 kg Narrative: General: Patient is pleasant, laying in bed eating breakfast. Patient initially positive and optimistic more somber towards the end of discussion. Some emotional lability after discussing hospice. Skin: No rashes or discoloration from previous skin tone. Cardio: Regular rate and rhythm, no murmurs rubs or gallops Pulmonary: Clear to auscultation bilaterally, no wheezes or crackles Abdomen: vertical bandage on abdomen; 3 midline incisions with staple closures that are clean, dry, and intact. No nathalie-incisional erythema or edema. Extremities: No cyanosis or edema Neuro: Alert and oriented x3 Psych: Positive and hopeful about her diagnosis but does endorse understanding that per her physicians there is no cure for her metastatic breast cancer and is ultimately terminal. Assessment and Plan - Assessment (1) Partial small bowel obstruction Code(s): K56.600 - Partial intestinal obstruction, unspecified as to cause Status: Acute Plan: 47-year-old female with metastatic breast cancer presents to the ED for nausea/ vomiting/diarrhea. 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 - s/p POD #3 after small bowel resection with anastomosis - General surgery following, appreciate their care - Tolerating liquid diet, patient reports that she had some oatmeal and tolerated it well without any nausea, advance to full liquids as tolerated - Pain management: [place] 7.5/325 2 (two) tabs q6hrs for 6-10 pain scale - Pain management: 3mg q4hrs IV push for breakthrough pain -Continue Flagyl until 09/12 -Continue cefazolin until 09/12 (2) Metastatic breast cancer Code(s): C50.919 - Malignant neoplasm of unspecified site of unspecified female breast Status: Acute Plan: - Patient reports being currently on Tamoxifen 20 - Outpatient oncologist: Dr. Henriquez - Hospice consulted to discuss goals of care with family, appreciate recommendations (3) Generalized pruritus Code(s): L29.9 - Pruritus, unspecified Status: Resolved Plan: Resolved (4) Nutrition, metabolism, and development symptoms Code(s): R63.8 - Other symptoms and signs concerning food and fluid intake Status: Acute Plan: Fluids: Discontinue fluids, adequate PO intake Electrolytes: replete as needed Nutrition: Regular diet per surgery Vitals q4h, monitor I & Os DVT ppx: Lovenox 40mg Disposition: - Patient will remain in hospital for at least 2 more days as we monitor recovery after surgery
--- NOTE | 2018-09-12 13:12 | P.PNGS ---
Subjective Patient reports: feels better, pain is less, tolerating a regular diet, flatus, no bowel movement Physical Exam Vital signs: Vital Signs 09/11/18 16:00 09/11/18 20:00 09/12/18 00:00 Temperature 97.3 F L 97.3 F L 97.8 F Pulse Rate 103 H 116 H 84 Respiratory Rate 16 19 19 Blood Pressure 160/102 H 143/85 H 141/85 H Pulse Oximetry 92 L 96 97 09/12/18 08:00 09/12/18 12:33 Temperature 98.0 F 97.8 F Pulse Rate 92 H 108 H Respiratory Rate 18 16 Blood Pressure 158/110 H 163/101 H Pulse Oximetry 95 98 Intake & Output 09/11/18 09/12/18 09/12/18 18:59 06:59 18:59 Weight 58.1 kg - Routine Abdominal Exam Present: soft, normoactive bowel sounds, surgical scars, wound Results - Labs 09/12/18 05:16 09/12/18 05:16 Laboratory Results - last 24 hr 09/12/18 09/12/18 05:16 05:16 WBC 8.2 RBC 3.38 L Hgb 10.5 L Hct 30.5 L MCV 90.5 MCH 31.2 MCHC 34.5 RDW 16.0 Plt Count 422 MPV 8.4 Neut % (Auto) 74.3 H Lymph % (Auto) 16.3 [place] % (Auto) 3.9 Eos % (Auto) 5.0 H Baso % (Auto) 0.5 Neut # (Auto) 6.1 Lymph # (Auto) 1.3 [place] # (Auto) 0.3 Eos # (Auto) 0.4 Baso # (Auto) 0.0 WBC Differential . Differential Comment Auto diff final Sodium 144 Potassium 4.0 Chloride 112 H Carbon Dioxide 25.7 Anion Gap 6 BUN 6 L Creatinine 0.96 Estimated GFR 75 L Random Glucose 73 L Calcium 8.5 - Imaging Imaging: ITS Impressions Abdomen X-Ray 09/08/18 10:57 CONCLUSION: Negative examination. Abdomen/Pelvis CT 09/08/18 10:57 CONCLUSION: 1. Focal loop of dilated distal ileum in the right lower quadrant with proximal and distal transition points and trace amount of residual ascites. There is prominent fecalization within this loop. In January, patient had a large heterogeneous mixed density mass extending through the iliopsoas/iliac fossa. Findings are concerning for focal small bowel obstruction potentially related to adhesions. No evidence for bowel infarction or perforation at this time. No focal abscess. 2. Diffusely heterogeneous marrow with multiple ill-defined lytic lytic most prominently involving the left ilium consistent with diffuse osseous metastatic disease. 3. Previously described lesion in the left lobe of the liver is slightly decreased in size from 1.7 cm to 1.3 cm. Suspect adjacent focal fat near the falciform ligament. Assessment and Plan - Assessment (1) Metastatic breast cancer Code(s): C50.919 - Malignant neoplasm of unspecified site of unspecified female breast Status: Acute (2) Small bowel obstruction due to adhesions Code(s): K56.50 - Intestinal adhesions [bands], unspecified as to partial versus complete obstruction Status: Acute (3) Hx of exploratory laparotomy Code(s): Z98.890 - Other specified postprocedural states Status: Acute (4) H/O right mastectomy Code(s): Z90.11 - Acquired absence of right breast and nipple Status: Acute (5) Breast cancer Code(s): C50.919 - Malignant neoplasm of unspecified site of unspecified female breast Status: Acute - Plan POD 3 exp lap, small bowel resection. will advance diet and observe widely metastatic breast cancer. pain controlled per patient await BM then DC can FU in office next week for staple removal
[2018-09-12] MEDS: Enoxaparin Inj 40 MG/0.4 ML Syringe SQ SCH (20:24)
[2018-09-12] MEDS: Morphine Inj 4 MG/ML Vial IV.PUSH PRN (23:50)
[2018-09-13] MEDS: Polyethylene Glycol 3350 17 GM Packet PO SCH (08:51)
[2018-09-13 10:01] LABS: Baso % (Auto) 0.5 % (0.0-2.0); Eos # (Auto) 0.4 th/mm3 (0.0-0.4); Eos % (Auto) 4.9 % (0.0-4.0); Hematocrit 38.6 % (35.0-46.0); Hemoglobin 13.3 gm/dL (11.6-15.3); Lymph # (Auto) 1.7 th/mm3 (1.0-4.8); Lymph % (Auto) 20.4 % (9.0-44.0); Mean Corpuscular HGB Conc 34.3 % (32.0-36.0); Mean Corpuscular Hemoglobin 31.5 pg (27.0-34.0); Mean Corpuscular Volume 91.8 fL (80.0-100.0); Mean Platelet Volume 8.7 fL (7.0-11.0); Mono # (Auto) 0.4 th/mm3 (0.0-0.9); Mono % (Auto) 4.6 % (0.0-8.0); Neut # (Auto) 5.7 th/mm3 (1.8-7.7); Neut % (Auto) 69.6 % (16.0-70.0); Platelet Count 467 th/mm3 (150-450); Red Blood Count 4.21 mil/mm3 (4.00-5.30); Red Cell Distribution Width 16.1 % (11.6-17.2); White Blood Count 8.2 th/mm3 (4.0-11.0)
[2018-09-13 10:22] LABS: Calcium 8.6 mg/dL (8.5-10.1); Carbon Dioxide 27.3 meq/L (21.0-32.0); Potassium 4.3 meq/L (3.5-5.1)
--- NOTE | 2018-09-13 10:26 | P.PNFP ---
Subjective Interval history: No acute events overnight. Patient doing well. Patient lying in bed and talking on the phone. States that she has not had a bowel movement yet. She is open to receiving MiraLAX and Colace. Otherwise, no other complaints today. Denies fevers, chest pain, shortness of breath, nausea vomiting, abdominal pain. Results - Labs Result diagrams: 09/13/18 07:58 09/13/18 07:58 Abnormal lab results 09/13/18 09/13/18 Range/Units 07:58 07:58 Plt Count 467 H (150-450) th/mm3 Eos % (Auto) 4.9 H (0.0-4.0) % Chloride 110 H (98-107) meq/L BUN 5 L (7-18) mg/dL Estimated GFR 83 L (>89) mL/min Random Glucose 71 L (74-106) mg/dL Short CBC 09/13/18 Range/Units 07:58 WBC 8.2 (4.0-11.0) th/mm3 Hgb 13.3 D (11.6-15.3) gm/dL Hct 38.6 (35.0-46.0) % Plt Count 467 H (150-450) th/mm3 BMP 09/13/18 07:58 Sodium 144 Potassium 4.3 Chloride 110 H Carbon Dioxide 27.3 BUN 5 L Creatinine 0.88 Calcium 8.6 Physical Exam Vital signs: Vital Signs 09/12/18 12:33 09/12/18 16:00 09/12/18 20:00 Temperature 97.8 F 97.9 F 98.3 F Pulse Rate 108 H 95 H 83 Respiratory Rate 16 16 19 Blood Pressure 163/101 H 168/104 H 157/88 H Pulse Oximetry 98 96 98 09/13/18 00:00 09/13/18 08:00 Temperature 98.2 F 98.5 F Pulse Rate 91 H 79 Respiratory Rate 19 17 Blood Pressure 164/89 H 169/94 H Pulse Oximetry 97 93 L Intake & Output 09/12/18 09/13/18 09/13/18 18:59 06:59 18:59 Other: Date of Last Bowel Movement 09/09/18 Narrative: General: Patient is pleasant, in NAD Skin: No rashes or discoloration from previous skin tone. Cardio: Regular rate and rhythm, no murmurs rubs or gallops Pulmonary: Clear to auscultation bilaterally, no wheezes or crackles Abdomen: vertical bandage on abdomen; 3 midline incisions with staple closures that are clean, dry, and intact. No nathalie-incisional erythema or edema. Extremities: No cyanosis or edema Neuro: Alert and oriented x3 Assessment and Plan - Assessment (1) Partial small bowel obstruction Code(s): K56.600 - Partial intestinal obstruction, unspecified as to cause Status: Acute Plan: 47-year-old female with metastatic breast cancer presents to the ED for nausea/ vomiting/diarrhea. 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 - s/p POD #4 after small bowel resection with anastomosis - General surgery following, appreciate their care -Tolerating regular diet - Pain management: [place] 7.5/325 2 (two) tabs q6hrs for 6-10 pain scale - Pain management: 4mg Morphine q4hrs IV push for breakthrough pain -Completed Flagyl and cefazolin 09/08- 09/12 -Added Colace and Miralax to assist in BM (2) Metastatic breast cancer Code(s): C50.919 - Malignant neoplasm of unspecified site of unspecified female breast Status: Acute Plan: - Patient reports being currently on Tamoxifen 20mg daily - Outpatient oncologist: Dr. Henriquez - Hospice consulted to discuss goals of care with family, appreciate recommendations (3) Nutrition, metabolism, and development symptoms Code(s): R63.8 - Other symptoms and signs concerning food and fluid intake Status: Acute Plan: Fluids: adequate PO intake Electrolytes: replete as needed Nutrition: Regular diet per surgery Vitals q4h, monitor I & Os DVT ppx: Lovenox 40mg Disposition: Patient can be discharge after BM per surgery
[2018-09-13] MEDS: Senna/Docusate Sodium 8.6/50 MG Tablet PO SCH ×2 (11:50→20:40)
[2018-09-13] MEDS ORDERED: Bisacodyl 10 MG Supp RECTAL PRN (16:59)
[2018-09-13] MEDS: Enoxaparin Inj 40 MG/0.4 ML Syringe SQ SCH (20:40)
[2018-09-14] MEDS: Senna/Docusate Sodium 8.6/50 MG Tablet PO SCH (08:28)
[2018-09-14] MEDS: Polyethylene Glycol 3350 17 GM Packet PO SCH (08:28)
--- NOTE | 2018-09-14 08:48 | P.PNGS ---
Subjective Patient reports: feels better, pain is less, tolerating a regular diet, flatus, bowel movement Physical Exam Vital signs: Vital Signs 09/13/18 12:00 09/13/18 16:00 09/13/18 20:00 Temperature 97.8 F 98.4 F 98.1 F Pulse Rate 97 H 80 101 H Respiratory Rate 12 14 20 Blood Pressure 168/97 H 145/99 H 151/109 H Pulse Oximetry 98 99 95 09/14/18 00:00 Temperature 98.1 F Pulse Rate 100 H Respiratory Rate 20 Blood Pressure 143/74 H Pulse Oximetry 99 Intake & Output 09/13/18 09/14/18 09/14/18 18:59 06:59 18:59 Intake Total 480 / 480 1200 / 1200 Balance 480 / 480 1200 / 1200 Weight 58.1 kg Intake: Oral 480 / 480 1200 / 1200 Other: # Voids 6 Date of Last Bowel Movement 09/09/18 09/13/18 09/14/18 # Bowel Movements 3 - Routine Abdominal Exam Present: soft, normoactive bowel sounds, wound Results - Labs 09/13/18 07:58 09/13/18 07:58 Laboratory Results - last 24 hr 09/13/18 09/13/18 07:58 07:58 WBC 8.2 RBC 4.21 Hgb 13.3 D Hct 38.6 MCV 91.8 MCH 31.5 MCHC 34.3 RDW 16.1 Plt Count 467 H MPV 8.7 Neut % (Auto) 69.6 Lymph % (Auto) 20.4 Sargent % (Auto) 4.6 Eos % (Auto) 4.9 H Baso % (Auto) 0.5 Neut # (Auto) 5.7 Lymph # (Auto) 1.7 Sargent # (Auto) 0.4 Eos # (Auto) 0.4 Baso # (Auto) 0.0 WBC Differential . Differential Comment Auto diff final Sodium 144 Potassium 4.3 Chloride 110 H Carbon Dioxide 27.3 Anion Gap 7 BUN 5 L Creatinine 0.88 Estimated GFR 83 L Random Glucose 71 L Calcium 8.6 - Imaging Imaging: ITS Impressions Abdomen X-Ray 09/08/18 10:57 CONCLUSION: Negative examination. Abdomen/Pelvis CT 09/08/18 10:57 CONCLUSION: 1. Focal loop of dilated distal ileum in the right lower quadrant with proximal and distal transition points and trace amount of residual ascites. There is prominent fecalization within this loop. In January, patient had a large heterogeneous mixed density mass extending through the iliopsoas/iliac fossa. Findings are concerning for focal small bowel obstruction potentially related to adhesions. No evidence for bowel infarction or perforation at this time. No focal abscess. 2. Diffusely heterogeneous marrow with multiple ill-defined lytic lytic most prominently involving the left ilium consistent with diffuse osseous metastatic disease. 3. Previously described lesion in the left lobe of the liver is slightly decreased in size from 1.7 cm to 1.3 cm. Suspect adjacent focal fat near the falciform ligament. Assessment and Plan - Assessment (1) Metastatic breast cancer Code(s): C50.919 - Malignant neoplasm of unspecified site of unspecified female breast Status: Acute (2) Small bowel obstruction due to adhesions Code(s): K56.50 - Intestinal adhesions [bands], unspecified as to partial versus complete obstruction Status: Acute (3) Hx of exploratory laparotomy Code(s): Z98.890 - Other specified postprocedural states Status: Acute (4) H/O right mastectomy Code(s): Z90.11 - Acquired absence of right breast and nipple Status: Acute (5) Breast cancer Code(s): C50.919 - Malignant neoplasm of unspecified site of unspecified female breast Status: Acute - Plan POD 4 exp lap, small bowel resection. tolerating regular diet widely metastatic breast cancer. pain controlled per patient Ok to DC from surgical standpoint can FU in office next week for staple removal
--- NOTE | 2018-09-14 11:00 | P.PNFP ---
Subjective Interval history: Patient was seen at bedside this morning. Patient had no acute events overnight. Patient reports having 2 bowel movements yesterday. The first bowel movement was hard but the second was normal. This morning the patient reports feeling very tired and globally weak without specifics. Patient reports that she does not want to go home and to "please let me stay another day ". Patient denies any subjective fevers, chills, shortness of breath, chest pain, nausea, or vomiting. All questions were answered to the patient's satisfaction. Results - Labs Result diagrams: 09/13/18 07:58 09/13/18 07:58 Physical Exam Vital signs: Vital Signs 09/13/18 12:00 09/13/18 16:00 09/13/18 20:00 Temperature 97.8 F 98.4 F 98.1 F Pulse Rate 97 H 80 101 H Respiratory Rate 12 14 20 Blood Pressure 168/97 H 145/99 H 151/109 H Pulse Oximetry 98 99 95 09/14/18 00:00 09/14/18 08:00 09/14/18 08:58 Temperature 98.1 F 97.4 F L Pulse Rate 100 H 91 H Respiratory Rate 20 18 18 Blood Pressure 143/74 H 171/111 H Pulse Oximetry 99 99 Intake & Output 09/13/18 09/14/18 09/14/18 18:59 06:59 18:59 Intake Total 480 / 480 1200 / 1200 Balance 480 / 480 1200 / 1200 Weight 58.1 kg Intake: Oral 480 / 480 1200 / 1200 Other: # Voids 6 Date of Last Bowel Movement 09/09/18 09/13/18 09/14/18 # Bowel Movements 3 Narrative: General: Patient is pleasant, in NAD but reports feeling globally weak Skin: No rashes or discoloration from previous skin tone. Cardio: Regular rate and rhythm, no murmurs rubs or gallops Pulmonary: Clear to auscultation bilaterally, no wheezes or crackles Abdomen: vertical bandage on abdomen; 3 midline incisions with staple closures that are clean, dry, and intact. No nathalie-incisional erythema or edema. Appropriately tender to palpation nathalie-incisional. Extremities: No cyanosis or edema Neuro: Alert and oriented x3 Assessment and Plan - Assessment (1) Partial small bowel obstruction Code(s): K56.600 - Partial intestinal obstruction, unspecified as to cause Status: Acute Plan: 47-year-old female with metastatic breast cancer presents to the ED for nausea/ vomiting/diarrhea. 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 Patient may now be discharged per surgery with follow-up next week for staple removal. - s/p POD #5 after small bowel resection with anastomosis -Tolerating regular diet - Pain management: Somers 7.5/325 2 (two) tabs q6hrs for 6-10 pain scale - Pain management: 4mg Morphine q4hrs IV push for breakthrough pain -Completed Flagyl and cefazolin 09/08- 09/12 (2) Metastatic breast cancer Code(s): C50.919 - Malignant neoplasm of unspecified site of unspecified female breast Status: Acute Plan: - Patient reports being currently on Tamoxifen 20mg daily - Outpatient oncologist: Dr. Henriquez -Patient spoke with hospice but does not desire to continue with hospice service at this time. (3) Nutrition, metabolism, and development symptoms Code(s): R63.8 - Other symptoms and signs concerning food and fluid intake Status: Acute Plan: Fluids: adequate PO intake Electrolytes: replete as needed Nutrition: Regular diet per surgery Vitals q4h, monitor I & Os DVT ppx: Lovenox 40mg Disposition: Patient can be discharge after BM per surgery
--- NOTE | 2018-09-14 14:06 | P.PNADD ---
Addendum to Inpatient Note Reason for Addendum: Additional Documentation Additional information: Spoke with patient this afternoon. States that she is feeling better and ready to go home. Discussed with patient about following up with surgery next week for staple removal and [facility]. Will send patient home on 3 days of pain med. Patient understood and agreed.
[2018-09-14 14:36] VITALS: BP 127/93; PULSE 89; RESP 16; TEMP 98; O2SAT 100
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
== END 2018-09-14 14:54 | disposition home or self-care (01) ==
LOC: NEPE 09:18 → NEDA 15:36 → INTOOBSV 15:36 → N06 18:56
PROVIDERS: ADMIT Family Medicine; ATTEND Family Medicine